=== PATIENT | female | born 1950 | race Caucasian/White ===

== ENCOUNTER 2017-01-17 11:17 | Inpatient (IN) | payer OTHER ==
[~2017-01-17] VITALS: Ht 165.1 cm; Wt 72.3 kg
[~2017-01-17 11:17] MED LIST: ACET-2208 PO; CARB200C4 PO; DOCU-299 PO; GLU500 PO; LISI10TA11 PO; METF500T PO; PARO20TA13 PO; SIMV20TA1 PO; [UNRECOGNIZED DRUG - CODE] PO
[2017-01-17 11:19] VITALS: BP 97/57
--- NOTE | 2017-01-17 11:29 | NUR ---
Patient ambulated to bed 7. RN evaluating patient at bedside.
--- NOTE | 2017-01-17 11:30 | NUR ---
Note undone in EDM - 01/17/17 at 1352 by [email or web address] 66/F RISA FROM [facility] FOR SUDDEN ONSET OF ALTERED LOC, ON ARRIVAL PATIENT IS AWAKE AND ALERT NON VERBAL. UNKNOWN BASELINE. HAS HX OF MR AND HTN AND DM. SKIN IS PINK/WARM/DRY; LUNGS CLEAR BL; HR EVEN AND REGULAR; PATIENT POSITIONED FOR COMFORT; HOB ELEVATED; BEDRAILS UP X2; BED DOWN. ER MD MADE AWARE OF PT STATUS.
--- NOTE | 2017-01-17 11:30 | NUR ---
66/F BIBA FROM [facility] FOR SUDDEN ONSET OF ALTERED LOC. HX OF MR AND HTN AND DM. PER EMS PT USUALLY VERBAL BUT TODAY AFTER GOT MEDS & SHOWERED PT NON VERBAL. PATIENT IS AWAKE AND ALERT NON VERBAL BUT FOLLOW COMMAND. BRYANT ARMS & LEGS MOD CONTRACTED. WEAR DIAPER. SKIN IS PINK/WARM/DRY; LUNGS CLEAR BL; HR EVEN AND REGULAR; PATIENT POSITIONED FOR COMFORT; HOB ELEVATED; BEDRAILS UP X2; BED DOWN. ER MD MADE AWARE OF PT STATUS.
--- NOTE | 2017-01-17 11:30 | NUR ---
Note undone in EDM - 01/17/17 at 1445 by [email or web address] 66/F RISA FROM [facility] FOR SUDDEN ONSET OF ALTERED LOC. HX OF MR AND HTN AND DM. PER EMS PT USUALLY BERBA BUT TODAY AFTER GOT MEDS & SHOWERED PT NON VERBAL. PATIENT IS AWAKE AND ALERT NON VERBAL BUT FOLLOW COMMAND. BRYANT ARMS & LEGS MOD CONTRACTED. WEAR DIAPER. SKIN IS PINK/WARM/DRY; LUNGS CLEAR BL; HR EVEN AND REGULAR; PATIENT POSITIONED FOR COMFORT; HOB ELEVATED; BEDRAILS UP X2; BED DOWN. ER MD MADE AWARE OF PT STATUS.
[2017-01-17] MEDS ORDERED: DIPH50CA69 PO (11:31)
[2017-01-17] MEDS ORDERED: IBUP-2213 PO (11:31)
[2017-01-17] MEDS ORDERED: HYDR25CA1 PO (11:31)
[2017-01-17] MEDS ORDERED: NIFE30TE5 PO (11:31)
[2017-01-17] MEDS ORDERED: LORA-476 PO (11:31)
[2017-01-17] MEDS ORDERED: QUET100T PO (11:31)
--- NOTE | 2017-01-17 11:51 | NUR ---
Dr. Porter evaluating patient at bedside.
[2017-01-17] MEDS ORDERED: NACL 0.9% 500 ML IV ONE (12:00)
[2017-01-17 12:42] LABS: BASOPHILS # (AUTO) 0.1 K/uL (0.00-0.22); BASOPHILS % (AUTO) 0.9 % (0.0-2.0); EOSINOPHILS # (AUTO) 0.1 K/uL (0-0.4); EOSINOPHILS % (AUTO) 0.8 % (0.0-4.0); HEMATOCRIT 35.7 % (36-48); HEMOGLOBIN 11.7 g/dL (12.0-16.0); LYMPHOCYTES # (AUTO) 0.5 K/uL (2.5-16.5); LYMPHOCYTES % (AUTO) 4.6 % (20.5-51.1); MEAN CORPUSCULAR HEMOGLOBIN 28 pg (27-31); MEAN CORPUSCULAR HGB CONC 33 g/dL (33-37); MEAN CORPUSCULAR VOLUME 84 fL (80-94); MONOCYTES % (AUTO) 8.4 % (1.7-9.3); NEUTROPHILS # (AUTO) 9.6 K/uL (1.8-7.7); NEUTROPHILS % (AUTO) 85.3 % (42.2-75.2); PLATELET COUNT (AUTO) 336 K/uL (140-450); RED BLOOD CELL COUNT(AUTO) 4.25 MIL/uL (4.20-5.40); RED CELL DISTRIBUTION WIDTH 12.9 % (11.6-13.7); WHITE BLOOD COUNT (AUTO) 11.3 K/uL (4.8-10.8)
[2017-01-17 13:01] LABS: PROTHROMBIN TIME 10.4 secs (10.8-13.4)
[2017-01-17 13:15] LABS: ANION GAP 13.4 (8-16); CREATININE 1.1 mg/dL (0.6-1.3); POTASSIUM 3.4 mmol/L (3.5-5.1)
[2017-01-17 13:15] LABS: APPEARANCE,URINE HAZY (CLEAR); BILIRUBIN,URINE NEGATIVE (NEGATIVE); BLOOD, URINE NEGATIVE (NEGATIVE); COLOR,URINE YELLOW (YELLOW); LEUKOCYTE ESTERASE ,URINE NEGATIVE (NEGATIVE); NITRITE, URINE NEGATIVE (NEGATIVE); PH,URINE 6.5 (5.0-9.0); UGLUCOSE NEGATIVE (NEGATIVE)
[2017-01-17 13:22] LABS: ALBUMIN 3.4 g/dL (3.4-5.0); TOTAL BILIRUBIN 0.2 mg/dL (0.0-1.0)
[2017-01-17] MEDS ORDERED: LORazepam 2 MG/ML VIAL IVP PRN (14:00)
[2017-01-17] MEDS ORDERED: NACL 0.9% 1,000 ML IV ONE (14:00)
[2017-01-17] MEDS ORDERED: MORPHINE SULFATE 2 MG/ML SYR IVP PRN (14:00)
[2017-01-17] MEDS ORDERED: ONDANSETRON 4 MG/2 ML VIAL IVP PRN (14:00)
--- NOTE | 2017-01-17 14:46 | NUR ---
Patient will be admitted to care of DR TIJERINA. Admited to MS. Will go to room 115. Belongings list completed. Report to CHRISTI LITTLE.
--- NOTE | 2017-01-17 14:46 | NUR ---
GAVE REPORTTO CHRISTI LITTLE.
--- NOTE | 2017-01-17 14:50 | NUR ---
RECEIVED REPORT FROM KWABENA MAURO RN. WILL GET ROOM READY. AWAIT PT'S ARRIVAL.
--- NOTE | 2017-01-17 15:05 | NUR ---
PT ARRIVED ON THE UNIT WITH ER NURSE. PT HAD AN ACCIDENT. WET HERSELF. CHANGED LINENS, CHANGED PT OUT OF HER CLOTHES, INTO YELLOW GOWN. ADMINISTERED YELLOW SOCKS, YELLOW BAND, YELLOW SIGN ON DOOR. PT REMOVED IV. NO IV ACCESS. PT HX OF STAPHYCOCCUS EPIDERMIDIS. ON CONTACT ISO. NEW ID BAND ADMINISTERED. SKIN INTACT. PT NON VERBAL. ALERT AND WAKE. V/S WITHIN NORMAL RANGE. WILL CONTINUE TO MONITOR PT.
[2017-01-17 15:30] VITALS: BP 120/75
--- NOTE | 2017-01-17 15:49 | NUR ---
CRITICAL LAB: LACTIC ACID 3.3 WILL NOTIFY
--- NOTE | 2017-01-17 17:33 | NUR ---
VIMAL, REGISTERED MIDWIFE CAME TO SEE PT. IF NEED TO CONTACT:[phone] CELL. KEEP HIM POSTED RE CONDITION.
--- NOTE | 2017-01-17 19:10 | NUR ---
ENDORSED PT TO THE SENIOR DIGITAL DESIGNER NURSE AT BEDSIDE FOR CONTINUITY OF CARE. PT IN STABLE CONDITION. DR TIJERINA IS SUPPOSED TO BE HERE TO ASSESS PT AND PUT IN ORDERS. ENDORSED TO RN THAT SHE DOES NOT HAVE AN IV ACCESS D/T PT PULLED IT OUT. WANTED TO SEE IF HE CAN ORDER PO INSTEAD OF IV. SHE WILL PULL IT OUT.
--- NOTE | 2017-01-17 19:25 | NUR ---
RECEIVED FROM AM RN IN BED IN SITTING UP POSITION WATCHING TV. AWAKE AND ALERT. MENTALLY CHALLENGED PT. ABLE TO ANSWER YES OR NO. CALL LIGHT WITH IN REACH. BED ALARM ON AND NEEDS WILL BE MET . DX. OF ENCEPHALOPATHY , HYPONATREMIA AND WITH ABNORMAL LACTIC ACID RESULT.
--- NOTE | 2017-01-17 20:56 | NUR ---
PT. STILL AWAKE AT THIS TIME. ENCOURAGED TO SLEEP. NO RESTLESSNESS. FLACC 0-. BED ALARM ON.
--- NOTE | 2017-01-18 | NUR ---
REFUSED TO GO TO SLEEP. KEEPS WATCHING PEOPLE PASSING BY THE HALLWAY. ENCOURAGED TO SLEEP.
[2017-01-18 00:13] VITALS: BP 128/81
--- NOTE | 2017-01-18 02:20 | NUR ---
SLEEPING AT THIS TIME. FLACC 0-. NO RESTLESSNESS.
--- NOTE | 2017-01-18 04:00 | NUR ---
AWAKE. AM PERSONAL HYGIENE RENDERED BY AGRICULTURAL SERVICES DIRECTOR ASSIGNED. ENCOURAGED TO GO BACK TO SLEEP.
--- NOTE | 2017-01-18 05:00 | NUR ---
SLEEPING. FLACC 0-BED ALARM ON.
--- NOTE | 2017-01-18 06:26 | NUR ---
PT. AWAKE AT THIS TIME. NO RESTLESSNESS NOTED.
[2017-01-18 06:59] LABS: BASOPHILS # (AUTO) 0.2 K/uL (0.00-0.22); BASOPHILS % (AUTO) 1.9 % (0.0-2.0); EOSINOPHILS # (AUTO) 0.2 K/uL (0-0.4); EOSINOPHILS % (AUTO) 2.1 % (0.0-4.0); HEMATOCRIT 31.8 % (36-48); HEMOGLOBIN 10.6 g/dL (12.0-16.0); LYMPHOCYTES # (AUTO) 1.9 K/uL (2.5-16.5); LYMPHOCYTES % (AUTO) 20.8 % (20.5-51.1); MEAN CORPUSCULAR HEMOGLOBIN 28 pg (27-31); MEAN CORPUSCULAR HGB CONC 34 g/dL (33-37); MEAN CORPUSCULAR VOLUME 83 fL (80-94); MONOCYTES % (AUTO) 11.4 % (1.7-9.3); NEUTROPHILS # (AUTO) 5.8 K/uL (1.8-7.7); NEUTROPHILS % (AUTO) 63.8 % (42.2-75.2); PLATELET COUNT (AUTO) 326 K/uL (140-450); RED BLOOD CELL COUNT(AUTO) 3.81 MIL/uL (4.20-5.40); RED CELL DISTRIBUTION WIDTH 12.5 % (11.6-13.7); WHITE BLOOD COUNT (AUTO) 9.1 K/uL (4.8-10.8)
--- NOTE | 2017-01-18 07:20 | NUR ---
RECEIVED FROM NIGHT NURSE. PT LYING LEFT LATERAL AROUSED TO SOUND. PT IS MENTALLY CHALLENGED, NON-VERBAL, BUT FOLLOW SIMPLE COMMANDS, ANSWERING BY NODDING AND SHAKING HER HEAD. NO IV ACCESS, ACCORDING TO NIGHT NURSE PT PULLED OUT HER IV. NO IVF ORDER AT THIS TIME. CALL LIGHT WITHIN REACH. BED ALARM ON FALL PRECAUTIONS ARE MET. WILL CONTINUE TO MONITOR.
[2017-01-18 08:00] VITALS: BP 142/91
[2017-01-18 08:01] LABS: ALBUMIN 3.1 g/dL (3.4-5.0); ANION GAP 13.7 (8-16); CARBON DIOXIDE 25.9 mmol/L (21-32); CREATININE 0.9 mg/dL (0.6-1.3); MAGNESIUM 1.6 mg/dL (1.8-2.4); PHOSPHORUS 3.8 mg/dL (2.5-4.9); POTASSIUM 4.6 mmol/L (3.5-5.1); TOTAL BILIRUBIN 0.3 mg/dL (0.0-1.0)
--- NOTE | 2017-01-18 09:30 | NUR ---
PT REMOVED HER ID BAND AND FALL RISK BAND. PT TRIED TO GET OUT OF BED. PUT PT BACK TO BED. PT HAD NO BM OR URINE IN THE PAD. PT RESTING IN THE BED QUIETLY.
[2017-01-18] MEDS: ENOXAPARIN 40 MG/0.4 ML SYR SUBQ SCH (09:48)
--- NOTE | 2017-01-18 10:00 | NUR ---
PT'S SISTER CAME TO VISIT, SITTING AT BEDSIDE. PT IS IN STABLE CONDITION AND FOLLOWS SIMPLE COMMANDS. NO ACUTE S/S OF DISTRESS NOTED.
--- NOTE | 2017-01-18 10:20 | NUR ---
SPOKE W/ DR. CORRAL WHO IS COVERING FOR DR. TIJERINA ABOUT PT' S HIGH BLOOD PRESSURE. DR. CORRAL ORDERED TO CONTINUE PT'S HOME MEDS OF LISINOPRIL AND PROCARDIA WITH THE SAME DOSAGE, FREQ AND ROUTE.
[2017-01-18] MEDS ORDERED: INSULIN LISPRO SLIDING SCALE 100 UNITS/ML VIAL SUBQ PRN (11:00)
[2017-01-18] MEDS: BLOOD GLUCOSE MONITORING 1 DEV DEV FS SCH ×3 (11:15→21:00)
--- NOTE | 2017-01-18 11:55 | NUR ---
CM NOTE INITIAL REVIEW FAXED TO [facility] / FAX# [phone], ATTN: PAT #[phone] [id number]
[2017-01-18] MEDS ORDERED: guaiFENesin DM 200/20 MG-10 ML 10 ML UDC PO PRN (14:05)
[2017-01-18] MEDS ORDERED: ACETAMINOPHEN 325 MG TAB PO PRN (14:05)
[2017-01-18] MEDS ORDERED: LORazepam 1 MG TAB PO PRN (14:05)
[2017-01-18] MEDS ORDERED: NACL 0.9% 1,000 ML IV SCH ×2 (14:10→17:55)
--- NOTE | 2017-01-18 14:16 | NUR ---
DR. CORRAL HAS SEEN THE PT. WAITING FOR TO PUT IN NEW ORDERS. PT URINATED, YANDY COLOR, NORMAL ODOR, MODERATE AMOUNT. CLEANED AND DRIED LIDA AREA, CHANGED CHUX. PT RESTING IN BED COMFORTABLY.
[2017-01-18] MEDS ORDERED: MAGNESIUM CHLORIDE 64 MG TABEC PO SCH (14:30)
--- NOTE | 2017-01-18 15:38 | NUR ---
PATIENT HAS BEEN SCREENED AND CATEGORIZED MODERATE NUTRITION RISK. PATIENT WILL BE SEEN WITHIN 3-5 DAYS OF ADMISSION. 01/20/17-01/22/[address]
[2017-01-18 16:00] VITALS: BP 152/103
--- NOTE | 2017-01-18 16:00 | NUR ---
PT WAS ASSISTED TO BATHROOM, PT HAD BM, STOOL WAS FORMED. PT FOLLOWS SIMPLE COMMANDS.
--- NOTE | 2017-01-18 17:00 | NUR ---
IV INSERTED ON THE RIGHT FA 22G, PT TOLERATED WELL. WILL BE ADMINISTERED 1L NS BOLUS PER MD ORDER.
[2017-01-18] MEDS: PARoxetine 20 MG TAB PO SCH (17:10)
[2017-01-18] MEDS: SIMVASTATIN 20 MG TAB PO SCH (17:11)
[2017-01-18] MEDS: hydrOXYzine PAMOATE 25 MG CAP PO SCH (18:26)
--- NOTE | 2017-01-18 19:35 | NUR ---
ENDORSED PT TO DIET CLERK NURSE FOR CONTINUITY OF CARE. PT REPORT GIVEN AT BEDSIDE. PT IS IN STABLE CONDITION.
--- NOTE | 2017-01-18 19:36 | NUR ---
RECEIVED REPORT FROM DAY NURSE LISET PT IN STABLE CONDITION. AAO, PT IS NON VERBAL BUT RESPONDS TO HER NAME. IV TO RA 22G, PATENT AND INTACT. SKIN IS INTACT, RESPIRATIONS ARE EVEN AND UNLABORED. PT IS ON RA. INITIAL ASSESSMENT COMPLETED. PLAN OF CARE DISCUSSED WITH PT, REINFORCEMENT NEEDED. ALL SAFETY PRECAUTIONS MET, CALL LIGHT WITHIN REACH, WILL CONTINUE TO MONITOR
[2017-01-18] MEDS ORDERED: CARBAMAZEPINE 200 MG PO SCH (21:00)
[2017-01-18] MEDS ORDERED: LISINOPRIL 10 MG TAB PO SCH (21:00)
[2017-01-18] MEDS: QUEtiapine FUMARATE 100 MG TAB PO SCH (22:10)
[2017-01-18] MEDS: LISINOPRIL 10 MG TAB PO SCH (22:10)
[2017-01-19] VITALS: BP 138/69
[2017-01-19] MEDS: BLOOD GLUCOSE MONITORING 1 DEV DEV FS SCH ×4 (06:38→20:30)
[2017-01-19 06:45] LABS: BASOPHILS # (AUTO) 0.2 K/uL (0.00-0.22); BASOPHILS % (AUTO) 1.7 % (0.0-2.0); EOSINOPHILS # (AUTO) 0.1 K/uL (0-0.4); EOSINOPHILS % (AUTO) 1.3 % (0.0-4.0); HEMOGLOBIN 9.7 g/dL (12.0-16.0); LYMPHOCYTES # (AUTO) 1.4 K/uL (2.5-16.5); LYMPHOCYTES % (AUTO) 15.4 % (20.5-51.1); MEAN CORPUSCULAR HEMOGLOBIN 28 pg (27-31); MEAN CORPUSCULAR HGB CONC 32 g/dL (33-37); MEAN CORPUSCULAR VOLUME 85 fL (80-94); MONOCYTES # (AUTO) 0.8 K/uL (0.8-1.0); MONOCYTES % (AUTO) 8.9 % (1.7-9.3); NEUTROPHILS # (AUTO) 6.6 K/uL (1.8-7.7); NEUTROPHILS % (AUTO) 72.7 % (42.2-75.2); PLATELET COUNT (AUTO) 312 K/uL (140-450); RED BLOOD CELL COUNT(AUTO) 3.53 MIL/uL (4.20-5.40); RED CELL DISTRIBUTION WIDTH 12.5 % (11.6-13.7); WHITE BLOOD COUNT (AUTO) 9.1 K/uL (4.8-10.8)
[2017-01-19 07:12] LABS: ALBUMIN 3.1 g/dL (3.4-5.0); CREATININE 0.6 mg/dL (0.6-1.3); TOTAL BILIRUBIN 0.4 mg/dL (0.0-1.0)
--- NOTE | 2017-01-19 07:26 | NUR ---
GAVE REPORT AT THE BEDSIDE TO DAY NURSE FOR CONTINUITY OF CARE PT IN STABLE CONDITION.
--- NOTE | 2017-01-19 07:29 | NUR ---
RECEIVED PT IN BED. AWAKE. ALERT ORIENTEDX1. NON VERBAL. PT OBEYS COMMAND. NO SOB NOTED. NO SIGNS AND SYMPTOMS OF ACUTE PAIN OR DISCOMFORT NOTED AT THIS TIME. PT ON BEDREST. SAFETY PRECAUTION IN PLACE. CALL LIGHT WITHIN REACH.
[2017-01-19 08:00] VITALS: BP 153/97
[2017-01-19] MEDS: LISINOPRIL 10 MG TAB PO SCH ×2 (08:52→20:33)
[2017-01-19] MEDS: DOCUSATE SODIUM 100 MG GELCAP PO SCH (08:52)
[2017-01-19] MEDS: QUEtiapine FUMARATE 100 MG TAB PO SCH ×2 (08:53→20:33)
[2017-01-19] MEDS: ENOXAPARIN 40 MG/0.4 ML SYR SUBQ SCH (08:56)
[2017-01-19] MEDS ORDERED: NIFEdipine 30 MG TABER PO SCH (09:00)
[2017-01-19] MEDS: NIFEdipine 30 MG TABER PO SCH (09:03)
[2017-01-19] MEDS: hydrOXYzine PAMOATE 25 MG CAP PO SCH ×3 (09:03→17:37)
--- NOTE | 2017-01-19 10:00 | NUR ---
PT UP IN CHAIR. SISTER AT BEDSIDE. PT AMBULATES WITH ASSIST. NO SOB NOTED. DENIES ANY PAIN OR DISCOMFORT AT THIS TIME.
--- NOTE | 2017-01-19 12:33 | NUR ---
FAXED CONCURRENT REVIEW TO [facility] [phone] PHONE [phone]
--- NOTE | 2017-01-19 14:52 | NUR ---
DR. CORRAL MADE AWARE OF MAGNESIUM LEVEL YESTERDAY 1.6 AND MAG TAB GIVEN PO. ASKED IF WOULD WANT TO REPEAT MG LEVEL FOR TODAY. PER DR. CORRAL NO, ITS OK.
[2017-01-19 16:00] VITALS: BP 145/68
--- NOTE | 2017-01-19 17:00 | NUR ---
PAGED DR. CORRAL REGARDING RESULT OF CT SCAN. AWAITING CALL BACK.
[2017-01-19] MEDS: SIMVASTATIN 20 MG TAB PO SCH (17:37)
[2017-01-19] MEDS: PARoxetine 20 MG TAB PO SCH (17:37)
--- NOTE | 2017-01-19 19:30 | NUR ---
RECEIVED REPORT FROM CHRISTI SINGLETON. INITIAL ASSESSMENT COMPLETED. PT IS ALERT AWAKE BUT UNABLE TO VERBALIZE NEEDS. PT IS MENTALLY CHALLENGE. IV ACCESS 22G ON SALINE LOCK. PATENT INTACT AT THIS TIME. NO SIGNS OF DISTRESS BED IN LOW POSITION. SAFETY MEASURE ENSURE, WILL CONTINUE TO MONITOR.
--- NOTE | 2017-01-19 19:41 | NUR ---
PT KEPT, CLEAN, DRY AND COMFORTABLE, NEEDS ATTENDED. ENDORSED TO NEXT SHIFT, PT ON STABLE CONDITION, FOR CONTINUITY OF CARE.
[2017-01-19] MEDS: POLYETHYLENE GLYCOL 17 GM/PKT PO SCH (20:33)
--- NOTE | 2017-01-19 22:45 | NUR ---
RECEIVED HANDOFF REPORT FROM RN. PATIENT NON VERBAL. FLACC 0. IV SITE PATENT AND INTACT. NO SIGNS OR SYMPTOMS OF ACUTE DISTRESS NOTED. CALL LIGHT WITHIN REACH. WILL CONTINUE TO MONITOR.
--- NOTE | 2017-01-19 22:50 | NUR ---
TRANSFER OF CARE TO CHRISTI COHEN. REPORT GIVEN. PT ON STABLE CONDITION.
[2017-01-20] VITALS: BP 161/99
--- NOTE | 2017-01-20 03:24 | NUR ---
PATIENT RESTING IN BED. FLACC 0. NO SIGNS OR SYMPTOMS OF ACUTE DISTRESS NOTED. CALL LIGHT WITHIN REACH. WILL CONTINUE TO MONITOR.
--- NOTE | 2017-01-20 06:15 | NUR ---
PATIENT RESTING IN BED. FLACC 0. NO SIGNS OR SYMPTOMS OF ACUTE DISTRESS NOTED. CALL LIGHT WITHIN REACH. WILL CONTINUE TO MONITOR.
--- NOTE | 2017-01-20 06:28 | NUR ---
PATIENT REFUSED BLOOD GLUCOSE CHECK AND MORNING LAB DRAW.
[2017-01-20] MEDS: BLOOD GLUCOSE MONITORING 1 DEV DEV FS SCH ×4 (07:30→20:04)
--- NOTE | 2017-01-20 07:36 | NUR ---
ENDORSED PLAN OF CARE TO AM RN. PATIENT IN STABLE CONDITION. SAFETY MEASURES ENSURED. NO SIGNS OR SYMPTOMS OF ACUTE DISTRESS NOTED. CALL LIGHT WITHIN REACH.
--- NOTE | 2017-01-20 07:37 | NUR ---
RECEIVED REPORT FROM NIGHT NURSE AT PT BEDSIDE. PT SLEEPING, EASILY AWAKENS. PATIENT APHASIC, AWAKE AND ALERT. FOLLOWS COMMANDS. PATIENT ON BEDREST, SIDE RAILS X2 UP, BED IN LOWEST POSITION, SEIZURE PRECAUTIONS IN PLACE. PATIENT IV SITE PATENT AND INTACT, CALL LIGHT WITHIN REACH. NO S/S OF RESPIRATORY DISTRESS ON ROOM AIR.
[2017-01-20 08:00] VITALS: BP 142/65
[2017-01-20] MEDS: DOCUSATE SODIUM 100 MG GELCAP PO SCH (09:46)
[2017-01-20] MEDS: LISINOPRIL 10 MG TAB PO SCH ×2 (09:46→20:29)
[2017-01-20] MEDS: QUEtiapine FUMARATE 100 MG TAB PO SCH ×2 (09:46→20:28)
[2017-01-20] MEDS: NIFEdipine 30 MG TABER PO SCH (09:47)
[2017-01-20] MEDS: POLYETHYLENE GLYCOL 17 GM/PKT PO SCH ×2 (09:47→20:27)
[2017-01-20] MEDS: hydrOXYzine PAMOATE 25 MG CAP PO SCH ×3 (09:47→17:57)
[2017-01-20] MEDS: ENOXAPARIN 40 MG/0.4 ML SYR SUBQ SCH (09:52)
--- NOTE | 2017-01-20 10:10 | NUR ---
PATIENT ASSISTED UP TO CHAIR WITH SISTER AT BEDSIDE. PATIENT TOLERATED PO MEDICATIONS. NO S/S OF ACUTE DISTRESS NOTED.
--- NOTE | 2017-01-20 11:00 | NUR ---
1025: WAS ALERTED OF PATIENT HAVING ACTIVE SEIZURE. PATIENT WAS SITTING UP IN CHAIR WITH SISTER AT BEDSIDE. ASSISTED PT TO FLOOR WHERE PATIENT WAS FOUND TO BE UNRESPONSIVE IN TONIC STATE. PATIENT VITALS TAKEN, ELEVATED BP 176/97, NO S/S OF RESPIRATORY DISTRESS. PATIENT ASSISTED TO BED, NO SUDDEN MOVEMENTS NOTED, UNRESPONSIVE. 1055: PATIENT AWAKE AND ALERT, SISTER AT BEDSIDE. PATIENT AT BASELINE MENTATION STATUS. SPOKE WITH DR. CORRAL, NEW ORDERS RECEIVED, ONE TIME SEIZURE MEDICATION ADMINISTERED. CT HEAD ORDERED.
[2017-01-20] MEDS ORDERED: LORazepam 2 MG/ML VIAL IM/IVP PRN (11:05)
[2017-01-20] MEDS ORDERED: carBAMazepine 200 MG TAB PO SCH (11:09)
--- NOTE | 2017-01-20 12:19 | NUR ---
PATIENT RETURNED FROM CT HEAD, NO S/S OF ACUTE DISTRESS NOTED.
[2017-01-20] MEDS ORDERED: NACL 0.9% 1,000 ML IV SCH (13:45)
--- NOTE | 2017-01-20 15:00 | NUR ---
WITNESSED PATIENT SEIZURE IN BED WITH DAUGHTER AND VIMAL FROM [facility]. IVP ATIVAN ADMINISTERED. DR. CORRAL NOTIFIED OF SEIZURE LASTING TWO MINUTES. PATIENT SHOWS NO ACUTE INJURY FROM SEIZURE. NEW ORDERS RECEIVED FOR CXR DUE TO CRACKLES HEARD BILATERALLY. NEW ORDERS FOR CONSULTATION WITH NEURO.
--- NOTE | 2017-01-20 15:53 | NUR ---
SPOKE WITH XUAN FROM [facility]. SHE SAID FOR [facility], SEND REVIEWS TO [facility]. FAXED CONCURRENT REVIEW TO [facility] [phone] PHONE XUAN [phone]
[2017-01-20 16:00] VITALS: BP 131/72
--- NOTE | 2017-01-20 16:20 | NUR ---
PATIENT POSITIONED FOR COMFORT. TOLERATED PO DINNER. OFFLOADED PRESSURE AREAS. NO S/S OF ACUTE DISTRESS NOTED.
[2017-01-20] MEDS: SIMVASTATIN 20 MG TAB PO SCH (17:58)
[2017-01-20] MEDS: PARoxetine 20 MG TAB PO SCH (17:58)
--- NOTE | 2017-01-20 19:31 | NUR ---
ENDORSED PLAN OF CARE TO RN DIONE AT PT BEDSIDE. PATIENT AND FAMILY AT BEDSIDE MADE AWARE OF PLAN OF CARE. ALL NEEDS MET DURING SHIFT.
--- NOTE | 2017-01-20 19:40 | NUR ---
RECEIVED REPORT FROM DAY RN TUNG, PATIENT RESTING IN BED, AWAKE ALERT APHASIC, PATIENT IS MENTALLY CHALLENGED. NO S/S OF DISTRESS NOTED, RESPIRATION EVEN AND UNLABORED. TURNED PATIENT TO HER COMFORTABLE POSITION. CALL LIGHT WITHIN REACH, SAFETY MEASURE ENSURED WILL CONTINUE TO MONITOR.
[2017-01-20 20:00] VITALS: BP 135/82
[2017-01-20] MEDS: levETIRAcetam 500 MG in NACL 0.9% 100 ML IV SCH (20:27)
[2017-01-20] MEDS: carBAMazepine 200 MG TAB PO SCH (20:28)
--- NOTE | 2017-01-20 20:42 | NUR ---
PM MEDICATION GIVEN, PATIENT TOLERATED WELL. NO S/S OF DISTRESS NOTED, RESPIRATION EVEN AND UNLABORED, CALL LIGHT WITHIN REACH SAFETY MEASURE ENSURED, WILL CONTINUE TO MONITOR.
[2017-01-20] MEDS ORDERED: levETIRAcetam 500 MG in NACL 0.9% 100 ML IV ONE (21:00)
--- NOTE | 2017-01-20 22:35 | NUR ---
PATIENT ASLEEP IN BED, NO S/S OF DISTRESS NOTED, RESPIRATION EVEN AND UNLABORED, REPOSITIONED PATIENT TO HER COMFORTABLE POSITION, CALL LIGHT WITHIN REACH, SAFETY MEASURE ENSURED, WILL CONTINUE TO MONITOR.
[2017-01-20 23:51] VITALS: BP 115/61
--- NOTE | 2017-01-21 00:23 | NUR ---
NO CHANGE IN CONDITION, PATIENT WAS SLEEPING, BUT EASY TO AROUSE. VITAL SIGNS STABLE. NO S/S OF DISTRESS NOTED, RESPIRATION EVEN AND UNLABORED, REPOSITIONED PATIENT TO HER COMFORTABLE POSITION. CALL LIGHT WITHIN REACH, SAFETY MEASURE ENSURED,
--- NOTE | 2017-01-21 02:38 | NUR ---
NO CHANGE IN CONDITION, PATIENT WAS SLEEPING, EASY TO AROUSE, RESPIRATION EVEN AND UNLABORED, REPOSITIONED PATIENT TO HER COMFORTABLE POSITION. CALL LIGHT WITHIN REACH, SAFETY MEASURE ENSURED, WILL CONTINUE TO MONITOR.
[2017-01-21 04:00] VITALS: BP 111/75
--- NOTE | 2017-01-21 04:09 | NUR ---
PATIENT WAS SLEEPING, EASY TO AROUSE, VITAL SIGNS STABLE, RESPIRATION EVEN AND UNLABORED, CALL LIGHT WITHIN REACH, SAFETY MEASURE ENSURED, WILL CONTINUE TO MONITOR.
[2017-01-21] MEDS: BLOOD GLUCOSE MONITORING 1 DEV DEV FS SCH ×2 (06:47→11:30)
--- NOTE | 2017-01-21 06:53 | NUR ---
PATIENT IS SLEEPING, NO CHANGE IN CONDITION, RESPIRATION EVEN AND UNLABORED, CALL LIGHT WITHIN REACH, SAFETY MEASURE ENSURED, WILL CONTINUE TO MONITOR.
--- NOTE | 2017-01-21 07:11 | NUR ---
ENDORSED PLAN OF CARE TO DAY RN KISHORE, PATIENT RESTING IN BED, IN STABLE CONDITION. RESPIRATION EVEN AND UNLABORED.
--- NOTE | 2017-01-21 07:12 | NUR ---
RECEIVED REPORT FROM BAR HOST NURSE. PATIENT SLEEPING, AROUSABLE BY VOICE. NO DISTRESS NOTED. NO PAIN ON FLACC=0. AA, NON-VERBAL, SKIN COLOR APPROPRIATE TO ETHNICITY, WARM TO TOUCH. LUNGS CTA ON ALL LOBES, IV SITE INTACT, PATENT, ON SL. ABDOMEN SOFT, NON-DISTENDED. PATIENT HAS COMBATIVE BEHAVIOR WHERE IS NOT COOPERATIVE AND CONTINUOUSLY TRIES TO HIT AND BITE NURSES WHEN TRYING TO FEED AND TAKE VITAL SIGNS. REVIEWED PLAN OF CARE WITH PATIENT. SAFETY MEASURES IN PLACE, CALL LIGHT WITHIN REACH, SEIZURE PRECAUTIONS IN PLACE. WILL CONTINUE TO MONITOR.
[2017-01-21 08:00] VITALS: BP 126/77
--- NOTE | 2017-01-21 09:40 | NUR ---
PATIENT LYING IN BED WITH DAUGHTER AT BEDSIDE. NO DISTRESS NOTED. RESPIRATIONS EVEN, UNLABORED ON ROOM AIR. CONTINUES TO BE CONFUSED AND TRIES TO REMOVE BULLOCK CATHETER. MITTENS PLACED ON BOTH HANDS, HOWEVER, PATIENT KEEPS TAKING MITTENS OFF. MEDICATIONS DUE GIVEN. SAFETY MEASURES IN PLACE, CALL LIGHT WITHIN REACH. WILL CONTINUE TO MONITOR. Addendum: 01/21/17 at 1444 by Jb Rosario RN DISREGARD NOTE ABOVE. WRONG PATIENT
--- NOTE | 2017-01-21 09:50 | NUR ---
PATIENT LYING IN BED WITH FAMILY MEMBERS AT BEDSIDE. NO DISTRESS NOTED. FLACC 0, NO SEIZURES NOTED. ASSISTED PROCESS SAFETY MANAGEMENT ENGINEER WITH PATIENT CLEANUP. MEDICATIONS DUE GIVEN. CONDITION UNCHANGED. CONTINUES TO BE COMBATIVE TOWARD NURSES, CALM AROUND FAMILY MEMBERS. SAFETY MEASURES IN PLACE, CALL LIGHT WITHIN REACH, SEIZURE PRECAUTIONS IN PLACE. WILL CONTINUE TO MONITOR.
[2017-01-21] MEDS: hydrOXYzine PAMOATE 25 MG CAP PO SCH ×2 (10:03→12:51)
[2017-01-21] MEDS: carBAMazepine 200 MG TAB PO SCH (10:04)
[2017-01-21] MEDS: QUEtiapine FUMARATE 100 MG TAB PO SCH (10:04)
[2017-01-21] MEDS: NIFEdipine 30 MG TABER PO SCH (10:04)
[2017-01-21] MEDS: DOCUSATE SODIUM 100 MG GELCAP PO SCH (10:04)
[2017-01-21] MEDS: LISINOPRIL 10 MG TAB PO SCH (10:04)
[2017-01-21] MEDS: ENOXAPARIN 40 MG/0.4 ML SYR SUBQ SCH (10:05)
[2017-01-21] MEDS: POLYETHYLENE GLYCOL 17 GM/PKT PO SCH (10:06)
[2017-01-21] MEDS: levETIRAcetam 500 MG in NACL 0.9% 100 ML IV SCH (10:06)
--- NOTE | 2017-01-21 10:15 | NUR ---
IV SITE IS INFILRATED. IV LEVETIRACETAM NOT COMPETELY FINISHED. ATTEMPTED TO REMOVE IV AND START A NEW IV LINE, HOWEVER, PATIENT IS COMBATIVE AND REFUSES. NURSE UNABLE TO START A NEW IV LINE AT THIS TIME. WILL CHECK BACK LATER TO SEE IF PATIENT IS CALMER. WILL CONTINUE TO MONITOR.
[2017-01-21 12:00] VITALS: BP 116/79
--- NOTE | 2017-01-21 12:15 | NUR ---
PATIENT LYING IN BED WITH LUNCH TRAY IN FRONT AND DAUGHTER AT BEDSIDE FEEDING PATIENT. NO DISTRESS NOTED. FLACC 0. CONTINUE TO BE CONFUSED. CONDITION UNCHANGED. SAFETY MEASURES IN PLACE, CALL LIGHT WITHIN REACH. WILL CONTINUE TO MONITOR. Addendum: 01/21/17 at 1444 by Jb Rosario RN DISREGARD NOTE ABOVE. WRONG PATIENT
--- NOTE | 2017-01-21 12:30 | NUR ---
PATIENT SITTING IN BED WITH FAMILY MEMBER AT BEDSIDE FEEDING PATIENT. NO DISTRESS NOTED. FLACC 0. NO SEIZURES NOTED. CONDITION UNCHANGED. SAFETY MEASURES IN PLACE. WILL CONTINUE TO MONITOR.
[2017-01-21] MEDS ORDERED: KEP500 PO (14:18)
[2017-01-21] MEDS ORDERED: GLIP5TAB13 PO (14:20)
--- NOTE | 2017-01-21 14:30 | NUR ---
DR. PALOMO CALLED VIA PHONE. INFORMED DR. PALOMO THAT PATIENT HAD NO SEIZURES TODAY. OK TO DISCHARGE PATIENT BACK TO FACILITY PER DR. PALOMO VIA TORB. SAFETY MEASURES IN PLACE, CALL LIGHT WITHIN REACH. WILL CONTINUE TO MONITOR.
--- NOTE | 2017-01-21 15:28 | NUR ---
CALLED VIMAL JOHNSON, PATIENT'S CAREGIVER AT [facility] TO NOTIFY HIM THAT PATIENT IS CLEAR FOR DISCHARGE BACK TO HOME TODAY. VIMAL ABLE TO CENTERLESS GRINDING MACHINE ADJUSTER PATIENT FROM HOSPITAL AT 4 PM TODAY. SAFETY MEASURES IN PLACE, CALL LIGHT WITHIN REACH. WILL CONTINUE TO MONITOR.
--- NOTE | 2017-01-21 16:15 | NUR ---
PATIENT LYING IN BED COMFORTABLY. NO DISTRESS NOTED. FLACC =0. CONDITION UNCHANGED. NO SEIZURES NOTED. PROVIDED DISCHARGE INSTRUCTIONS TO PATIENT/FAMILY IN [place] FAMILY MEMBERS ABLE TO SPEAK [place]. FAMILY MEMBERS DECLINED BLUE TELEPHONE FOR TRANSLATION. DISCHARGE INSTRUCTIONS REGARDING FOLLOW-UP VISIT WITH NEUROLOGIST AND PCP, NEW/CHANGED MEDICATIONS, SEIZURE PRECAUTIONS AND DIET. ANSWERED ALL OF PATIENT/FAMILY MEMBERS QUESTIONS. PATIENT ALL READY TO GO HOME VIA PRIVATE VEHICLE. AWAITING VIMAL, CAREGIVER, TO ARRIVE TO TAKE PATIENT HOME VIA PRIVATE VEHICLE. IN STABLE CONDITION.
--- NOTE | 2017-01-21 16:30 | NUR ---
VIMAL, PATIENT'S CAREGIVER AT HOME FACILITY HERE TO TAKE PATIENT HOME. PATIENT ALREADY DRESSED UP AND READY TO GO. ID BANDS REMOVED. IV SITE REMOVED WITH MINIMAL BLOOD AND LUMEN COMPLETELY INTACT. NO DISTRESS NOTED. PATIENT DISCHARGED TO HOME FACILITY VIA PRIVATE VEHICLE. WHEELED PATIENT DOWN TO LOBBY VIA WHEELCHAIR WITH FAMILY AT SIDE. PATIENT ABLE TO AMBULATE FROM WHEELCHAIR TO THE CAR WITH ASSISTANCE. PATIENT DISCHARGED HOME VIA PRIVATE VEHICLE IN STABLE CONDITION.
== END 2017-01-21 16:30 | disposition home or self-care (01) | DRG 422 ==
LOC: MED 11:17 → MTU 14:03
PROVIDERS: ADMIT Hospitalist; ATTEND Hospitalist
DX: E86.0 Dehydration (principal); G93.40 Encephalopathy, unspecified; E87.2 Acidosis; K80.20 Calculus of gallbladder without cholecystitis without obstruction; I10 Essential (primary) hypertension; F79 Unspecified intellectual disabilities; E87.1 Hypo-osmolality and hyponatremia; E11.9 Type 2 diabetes mellitus without complications; G40.909 Epilepsy, unspecified, not intractable, without status epilepticus; T38.3X5A Adverse effect of insulin and oral hypoglycemic [antidiabetic] drugs, initial encounter; Z79.899 Other long term (current) drug therapy; Y92.89 Other specified places as the place of occurrence of the external cause; Z79.84 Long term (current) use of oral hypoglycemic drugs
CPT/HCPCS: 36415; 36600; 70450; 71010; 76705; 80053; 81003; 82803; 82948; 83605; 83735; 83880; 84100; 84484; 85025; 85610; 85730; 87040; 87081; 93005; 96360; 99285; C1758; J1650; J1815; J1953; J2060; J7030; Q0092; Q0177

== ENCOUNTER 2017-10-16 07:47 | Emergency (ER) | payer OTHER ==
[~2017-10-16] VITALS: Ht 157.5 cm; Wt 59.0 kg
[~2017-10-16 07:47] MED LIST changes: +GLIP5TAB13 PO; -GLU500 PO; +HYDR25CA1 PO; +KEP500 PO; +LORA-476 PO; -METF500T PO; +NIFE30TE5 PO; +QUET100T PO
--- NOTE | 2017-10-16 07:49 | NUR ---
PT BIBA BLS TO BED 7
[2017-10-16 07:51] VITALS: BP 176/98
--- NOTE | 2017-10-16 07:58 | NUR ---
DR ESCOBEDO EVALUATING AT BEDSIDE
[2017-10-16] MEDS ORDERED: cefTRIAXone 1,000 MG in LIDOCAINE 1% ***ER ONLY *** 2.1 ML IM ONE (08:00)
[2017-10-16] MEDS ORDERED: cefTRIAXone 1,000 MG VIAL ONE (08:09)
[2017-10-16] MEDS ORDERED: LIDOCAINE MPF 1% - 5 mL VIAL 5 ML ONE (08:10)
--- NOTE | 2017-10-16 08:11 | NUR ---
PT TAKEN TO CT IN [place]
--- NOTE | 2017-10-16 08:16 | NUR ---
pt taken to ct scan
--- NOTE | 2017-10-16 08:22 | NUR ---
BROUGHT IN FROM [facility] (BOARDING CARE) IN [facility] PT FELL FROM BED-NO LOC LACERATION TO LEFT SIDE OF FOREHEAD ===BEHAVING APPROPRIATELY NO FACIAL ASYMMETRY, MOVING ALL EXTREMITIES HX---MENTALLY DELAYED, HTN, DM RX---LISINOPRIL, SIMVASTATIN, TYLENOL, IBUPROFEN, HYDROXYZINE, PROPRANOLOL, IRON, ZIPRASIDONE, QUETIAPINE, BANOPHEN, CARBAMAZEPINE, SENTRY, METFORMIN, GLIPIZIDE, ATIVAN, NIFEDIPINE, COLACE, PARROXETINE, CARB/LEVO, LEVETIRACETAM
--- NOTE | 2017-10-16 08:30 | NUR ---
PT RETURNED FROM CT
[2017-10-16] MEDS ORDERED: LIDOCAINE MPF 1% ONE (09:21)
[2017-10-16] MEDS ORDERED: BACITRACIN OINT 500 UNITS/GM PKT TP ONE (09:47)
[2017-10-16 10:04] VITALS: BP 144/73
--- NOTE | 2017-10-16 10:05 | NUR ---
Patient discharged with v/s stable. Written and verbal after care instructions given and explained. Patient alert, oriented and verbalized understanding of instructions. Ambulatory with by caregiver. All questions addressed prior to discharge. ID band removed. Patient advised to follow up with PMD. Rx of IBUPROFEN, KEFLEX given. Patient educated on indication of medication including possible reaction and side effects. Opportunity to ask questions provided and answered.
== END 2017-10-16 10:05 | disposition home or self-care (01) ==
LOC: MED 07:47
DX: S01.81XA Laceration without foreign body of other part of head, initial encounter (principal); E11.9 Type 2 diabetes mellitus without complications; I10 Essential (primary) hypertension; Z88.8 Allergy status to other drugs, medicaments and biological substances; Z79.899 Other long term (current) drug therapy; Z79.1 Long term (current) use of non-steroidal anti-inflammatories (NSAID); W06.XXXA Fall from bed, initial encounter; Y93.89 Activity, other specified; Y92.89 Other specified places as the place of occurrence of the external cause; Y99.8 Other external cause status
CPT/HCPCS: 12014; 70450; 72125; 90471; 90715; 96372; 99284; J0696; J2001

== ENCOUNTER 2018-04-26 17:23 | Inpatient (IN) | payer OTHER ==
[~2018-04-26] VITALS: Ht 149.9 cm; Wt 60.3 kg
[2018-04-26 17:57] VITALS: BP 128/52
--- NOTE | 2018-04-26 19:30 | NUR ---
PT TO ER BED 10
--- NOTE | 2018-04-26 20:11 | NUR ---
PT TO ED BIB CAREGIVER FOR FEVER. AFEBRILE AT THIS TIME. DENIES N/V/D. PT HX OF DEVELOPMENTAL DELAY --AT BASELINE AT THIS TIME. PT PLACED INTO BED PENDING MD MATTHEWS.
[2018-04-26 20:23] LABS: HEMATOCRIT 26.8 % (36-48); HEMOGLOBIN 8.6 g/dL (12.0-16.0); MEAN CORPUSCULAR HEMOGLOBIN 28 pg (27-31); MEAN CORPUSCULAR HGB CONC 32 g/dL (33-37); MEAN CORPUSCULAR VOLUME 87.1 fL (80-94); PLATELET COUNT (AUTO) 353 K/uL (140-450); RED BLOOD CELL COUNT(AUTO) 3.07 MIL/uL (4.20-5.40); RED CELL DISTRIBUTION WIDTH 14.1 % (11.6-13.7)
[2018-04-26 20:31] LABS: ANION GAP 13.6 (8-16); CARBON DIOXIDE 23.6 mmol/L (21-32); CREATININE 0.9 mg/dL (0.6-1.3); POTASSIUM 3.2 mmol/L (3.5-5.1)
[2018-04-26] MEDS ORDERED: NACL 0.9% 1,000 ML IV ONE (20:35)
[2018-04-26 20:38] LABS: ALBUMIN 2.1 g/dL (3.4-5.0); TOTAL BILIRUBIN 0.8 mg/dL (0.0-1.0)
[2018-04-26 21:03] LABS: BILIRUBIN,URINE 1+ (NEGATIVE); BLOOD, URINE 1+ (NEGATIVE); LEUKOCYTE ESTERASE ,URINE TRACE (NEGATIVE); NITRITE, URINE NEGATIVE (NEGATIVE); UGLUCOSE TRACE (NEGATIVE)
[2018-04-26 21:04] LABS: APPEARANCE,URINE HAZY (CLEAR); COLOR,URINE ORANGE (YELLOW)
[2018-04-26 21:06] LABS: RBC,URINE 3-10 (FEW) /HPF (0-5)
[2018-04-26 21:11] LABS: WHITE BLOOD COUNT (AUTO) 40.8 K/uL (4.8-10.8)
[2018-04-26] MEDS ORDERED: PIPERACILLIN/TAZOBACTAM 3.375 GM in DEXTROSE 5% 50 ML IV ONE (21:15)
[2018-04-26] MEDS ORDERED: NACL 0.9% 2,000 ML IV ONE (21:15)
[2018-04-26] MEDS ORDERED: VANCOMYCIN 1,000 MG in DEXTROSE 5% 250 ML IV ONE (21:15)
--- NOTE | 2018-04-26 21:20 | NUR ---
PER ADMITTING PT TO BE ADMITTED TO [facility].
[2018-04-26] MEDS ORDERED: MORPHINE SULFATE 2 MG/ML SYR IVP PRN (21:25)
[2018-04-26] MEDS ORDERED: VANCOMYCIN PER PHARMACY MC PRN (21:25)
[2018-04-26] MEDS ORDERED: DEXTROSE 50% 50 ML SYR IVP PRN (21:25)
[2018-04-26] MEDS ORDERED: ALBUTEROL 0.083% 2.5 MG/3 ML NEBU INH PRN (21:25)
[2018-04-26] MEDS ORDERED: PIPERACILLIN/TAZOBACTAM 3.375 GM VIAL IV ONE (21:28)
[2018-04-26] MEDS ORDERED: VANCOMYCIN 1,000 MG VIAL ONE (21:28)
--- NOTE | 2018-04-26 21:30 | NUR ---
# 14 FR Urinary catheter inserted utilizing sterile technique. Immediate return of 100 ml DARK YELLOW urine noted. Urine sample collected and sent to lab. Pt tolerated procedure WELL. CATH REMOVED AFTER URINE COLLECTION.
[2018-04-26 21:38] LABS: LYMPHOCYTES % (MANUAL) 2 % (20-46); MONOCYTES % (MANUAL) 6 % (5-12)
[2018-04-26] MEDS ORDERED: KCL 20 MEQ/WATER INJ PREMIX 200 ML IV ONE (21:40)
--- NOTE | 2018-04-26 22:15 | NUR ---
Patient noted to have existing wounds upon arrival to ER. Photos taken of wound and placed in chart. Wound covered with dressing. Physician informed.
--- NOTE | 2018-04-26 22:25 | NUR ---
RECEIVED FROM ER NURSE VIA KOURTNEY DIAS AWAKE, ALERT, W/ DEVT DELAY, NON VERBAL. PT ON TELE. PT WITH IVF ON THE R AC, G 18. BROUGHT IN BY CAREGIVERS FROM [facility]. ASSESSMENT OF SKIN DONE.ORIENTED TO UNIT. DISCUSSED POC W/ CAREGIVERS. PLACED BED AT LOWEST POSITION. PLACED CALL LIGHT W/IN EASY REACH. WILL CONTINUE TO MONITOR
--- NOTE | 2018-04-26 22:32 | NUR ---
Patient will be admitted to care of DR BENITES. Admited to TELE. Will go to room 105-A. Belongings list completed. Report to CHRISTI MATAMOROS.
--- NOTE | 2018-04-26 23:56 | NUR ---
DRESSING CHANGE ON SACRAL WOUND DONE
[2018-04-27] VITALS: BP 147/70
--- NOTE | 2018-04-27 00:30 | NUR ---
PT SLEEPING ON LEFT SIDE, TURNED PATIENT Q2. SLEEPING COMFORTABLE. NO SIGNS OF RESPIRATORY DISTRESS. NO S/ SX'S OF PAIN NOTED. WILL CONTINUE TO MONITOR
[2018-04-27] MEDS: NACL 0.9% 1,000 ML IV SCH ×3 (02:00→22:25)
[2018-04-27] MEDS ORDERED: POTASSIUM CHLORIDE 10 MEQ TABER PO ONE ×2 (03:05→05:18)
--- NOTE | 2018-04-27 03:06 | NUR ---
INFORMED RN PSYCH DR BLACKWELL ON K RESULT 3.2. HE SAID TO GIVE THE K PO. KDUR 20 MEQ PO ONCE TONIGHT. PT WAS NOT ABLE TO GET THE IVF IN THE ER EARLIER.WILL CARRY OUT ORDERS
[2018-04-27 04:00] VITALS: BP 140/68
--- NOTE | 2018-04-27 05:15 | NUR ---
ADMINISTERED K DUR NOW AFTER VERIFICATION OF PHARMACY
--- NOTE | 2018-04-27 05:16 | NUR ---
K DUR TABLET OVERIDE NO VERIFICATION DONE BY PHARMACY.
[2018-04-27 06:00] VITALS: BP 120/68
[2018-04-27] MEDS: ACETAMINOPHEN 325 MG TAB PO PRN ×2 (06:16→20:14)
--- NOTE | 2018-04-27 06:16 | NUR ---
T =101. F.GAVE TYLENOL PRN
[2018-04-27] MEDS: BLOOD GLUCOSE MONITORING 1 DEV DEV FS SCH ×4 (06:18→21:47)
[2018-04-27] MEDS: INSULIN LISPRO SLIDING SCALE 100 UNITS/ML VIAL SUBQ PRN ×2 (06:20→20:22)
--- NOTE | 2018-04-27 07:45 | NUR ---
ENDORSED TO NEXT SHIFT FOR CONTINUITY OF CARE
--- NOTE | 2018-04-27 07:45 | NUR ---
RECEIVED PATIENT REPORT AT BEDSIDE. PATIENT ASLEEP BUT AROUSABLE. NO S/S OF DISTRESS NOTED
--- NOTE | 2018-04-27 08:37 | NUR ---
PATIENT HAS BEEN SCREENED AND CATEGORIZED HIGH NUTRITION RISK. PATIENT WILL BE SEEN WITHIN 1-2 DAYS OF ADMISSION. 04/27/18-04/28/[address]
[2018-04-27] MEDS ORDERED: CEFEPIME 1,000 MG in DEXTROSE 5% 50 ML IV SCH (09:00)
[2018-04-27] MEDS ORDERED: CEFEPIME 1,000 MG in DEXTROSE 5% 50 ML IV ONE (09:00)
[2018-04-27 09:17] LABS: HEMATOCRIT 22.2 % (36-48); HEMOGLOBIN 7.2 g/dL (12.0-16.0); MEAN CORPUSCULAR HEMOGLOBIN 28 pg (27-31); MEAN CORPUSCULAR HGB CONC 33 g/dL (33-37); MEAN CORPUSCULAR VOLUME 86.8 fL (80-94); PLATELET COUNT (AUTO) 317 K/uL (140-450); RED BLOOD CELL COUNT(AUTO) 2.56 MIL/uL (4.20-5.40); RED CELL DISTRIBUTION WIDTH 13.7 % (11.6-13.7)
[2018-04-27] MEDS: CEFEPIME 1,000 MG in DEXTROSE 5% 50 ML IV SCH (10:00)
--- NOTE | 2018-04-27 10:30 | NUR ---
PATIENT EVALUATED WITH WOUND CARE NURSE
[2018-04-27 10:36] LABS: BASOPHILS % (MANUAL) 0 % (0-2); EOSINOPHILS % (MANUAL) 1 % (0-4); LYMPHOCYTES % (MANUAL) 2 % (20-46); MONOCYTES % (MANUAL) 5 % (5-12)
[2018-04-27 10:52] LABS: ALBUMIN 1.7 g/dL (3.4-5.0); ANION GAP 11.2 (8-16); CARBON DIOXIDE 23.9 mmol/L (21-32); CREATININE 0.9 mg/dL (0.6-1.3); MAGNESIUM 1.1 mg/dL (1.8-2.4); POTASSIUM 3.1 mmol/L (3.5-5.1); TOTAL BILIRUBIN 0.5 mg/dL (0.0-1.0)
[2018-04-27 12:00] VITALS: BP 110/59
--- NOTE | 2018-04-27 14:19 | NUR ---
04/27/18 RD INITIAL ASSESSMENT COMPLETED PLEASE REFER TO NUTRITION ASSESSMENT UNDER CARE ACTIVITY FOR ESTIMATED NUTRITIONAL NEEDS. 1. RECOMMEND MECHANICALLY SOFT CCHO 60 GM DIET TOLERATED 2. RECOMMEND VITAMIN C 100 MG/DAY 3. RD TO FOLLOW-UP 3-5 DAYS, MODERATE RISK BRIAN MALAGON, RD
[2018-04-27] MEDS: ENOXAPARIN 40 MG/0.4 ML SYR SUBQ SCH (15:14)
--- NOTE | 2018-04-27 16:02 | NUR ---
WOUND CARE EVALUATION NOTE: REASON FOR EVALUATION: COCCYX WOUND SKIN ASSESSMENT DONE WITH PRIMARY RN ON THIS 67 Y/O FEMALE PT ADMITTED FROM [facility] TO [facility] WITH INITIAL DX OF FEVER. PAST MEDICAL HX INCLUDES CEREBRAL PALSY PT. ADMITTED WITH PRESSURE INJURIES. ALL ABOVE INFORMATION OBTAINED FROM ADMISSION H&P. EMERGENCY PREPAREDNESS MANAGER DEPARTMENT INFORM OF PT. ADMITTED WITH PRESSURE INJURY. PT IS AWAKE. SKIN IS WARM AND DRY, BLE NO HAIR GROWTH, BILATERAL DORSAL PEDAL PULSES PRESENT AND NORMAL. CAPILLARY REFILLED < 2 SEC. X 10 TOES. INCONTINENT OF BM X1 DURING ASSESSMENT. PLAN OF CARE DISCUSSED WITH PRIMARY RN. INTEGUMENTARY: -ABRASION TO RIGHT LATERAL ABOVE ANKLE 2X1 CM AREA IS DRY -RIGHT 2ND AND 5TH DIGIT TOES SMALL BROWN SCABS 0.5X0.5 CM -BLANCHABLE REDNESS TO HEELS -PRESSURE INJURY UN-STAGEABLE TO SACRAL COCCYX, 3X3CM WOUND BED 100% BROWN SOFT SCAB NO ODOR, WITH LIDA-WOUND DENUDED AND SURROUNDING REDNESS WITH DTI OBSERVED, ENTIRE MEASUREMENT 7X4CM FURTHER DAMAGE INDICATED -LEFT HIP PRESSURE INJURY STAGE 2 FROM OPEN BLISTER 3X2X0.1 CM WOUND BED IS RED AND MOIST NO ODOR RECOMMENDATIONS: -KEEP SKIN DRY AND CLEAN AT ALL TIMES, PLEASE CHECK Q2H AND PRN FOR INCONTINENCY OF BOWEL AND BLADDER. -CLEANSE SACROCOCCYX WITH NS. PAT DRY, APPLY THERAHONEY GEL AND COVER WITH FOAM DRESSING SECURE WITH TAPE, QD AND PRN IF SOILING. -APPLY VERSATEL DRESSING TO LEFT HIP Q5 DAYS AND PRN IF SOILING, MONITOR PLACEMENT OF DRESSING Q SHIFT -APPLY HEEL PROTECTORS TO RIGHT/LEFT HEELS AT ALL TIMES -OFFLOAD BILATERAL HEELS BY PLACING PILLOWS UNDER CALVES UNLESS OTHERWISE CONTRAINDICATED -PRESSURE REDISTRIBUTION SURFACE THERAPY -TURN AND REPOSITION Q2H, OFFLOAD SACRALCOCCYX BY TURNING RIGHT AND LEFT -CONTINUE TO FOLLOW RD RECOMMENDATIONS ALL ABOVE RECOMMENDATIONS DISCUSSED WITH PRIMARY RN WILL FOLLOW UP PT Q7-10 DAYS. PLEASE CONTACT WOUND CARE NURSE FOR ANY QUESTION AND CHANGE OF WOUND CONDITION.
[2018-04-27 16:58] VITALS: BP 132/65
--- NOTE | 2018-04-27 19:26 | NUR ---
PATIENT REPORT GIVEN AT BEDSIDE. PATIENT ENDORSED IN STABLE CONDITION
--- NOTE | 2018-04-27 19:30 | NUR ---
RECEIVED PT AWAKE, SMILES BUT NONVERBAL, CAN FOLLOW SIMPLE COMMANDS, HX OF DEVELOPMENTAL DELAY, VITAL SIGNS TAKEN, ORAL TEMP-102, FLACC-0, COOLING MEASURES INITIATED, IVF INFUSING WELL, SAFETY MEASURES IN PLACE, SIDE RAILS UP AND BED ALARM ON, WILL REPOSITION Q2H AND OFFLOAD PRESSURE AREAS, CALL LIGHT WITHIN REACH.
[2018-04-27 20:00] VITALS: BP 121/61
[2018-04-27] MEDS: VANCOMYCIN 1GM/DEXT 5% PREMIX 200 ML IV SCH (20:14)
--- NOTE | 2018-04-27 20:15 | NUR ---
BLOOD SUGAR CHECKED WITH 159 RESULT, COVERAGE GIVEN, TYLENOL CRUSHED AND GIVEN WITH APPLE SAUCE, TOLERATED WELL, VANCOMYCIN IVPB ADMINISTERED, ALL NEED ANTICIPATED.
[2018-04-28] VITALS: BP 125/68
--- NOTE | 2018-04-28 | NUR ---
PT SLEEPING, OPEN EYES TO TOUCH, VITAL SIGNS STABLE, ORAL TEMP-99.2, IVF INFUSING WELL, REPOSITIONED Q2H AND OFFLOAD PRESSURE AREAS, CONTINUE TO MONITOR CLOSELY.
--- NOTE | 2018-04-28 02:30 | NUR ---
PT PULLED OUT IV LINE, CANNULA INTACT, NEW IV LINE INSERTED TO LEFT HAND, SITE WRAPPED WITH ROLLED GAUZE, RESUMED IVF, MONITORED CLOSELY.
[2018-04-28 04:00] VITALS: BP 142/75
--- NOTE | 2018-04-28 04:00 | NUR ---
PT SLEEPING, OPEN EYES TO TOUCH, VITAL SIGNS STABLE, AFEBRILE, FLACC-0, INCONTINENT OF URINE, CLEANED AND REPOSITIONED, MONITORED CLOSELY.
[2018-04-28] MEDS: NACL 0.9% 1,000 ML IV SCH ×2 (05:43→10:55)
--- NOTE | 2018-04-28 06:10 | NUR ---
PT SEEN WITH IV LINE OUT, CANNULA INTACT, NEW IV LINE INSERTED TO LEFT HAND, SITE COVERED WITH ROLLED GAUZE AND TONYA WRAPPED, RESUMED IVF, PT PROVIDED WITH WATER, TOLERATED WELL, MONITORED CLOSELY.
[2018-04-28] MEDS: BLOOD GLUCOSE MONITORING 1 DEV DEV FS SCH ×4 (06:36→19:59)
--- NOTE | 2018-04-28 07:23 | NUR ---
PT AWAKE, NO SIGNS OF DISTRESS, REPORT GIVEN TO CHRISTI STEEN FOR CONTINUITY OF CARE.
--- NOTE | 2018-04-28 07:23 | NUR ---
RECEIVED PATIENT REPORT AT BEDSIDE. PATIENT IS AWAKE AND ALERT. NO S/S OF DISTRESS. FALL PRECAUTIONS IN PLACE. PT ON TELE MONITORING. WILL CONTINUE TO MONITOR
--- NOTE | 2018-04-28 08:00 | NUR ---
ASSISTED PATIENT WITH BREAKFAST. PATIENT CONSUMED 100% OF HER MEAL.
[2018-04-28] MEDS: CEFEPIME 1,000 MG in DEXTROSE 5% 50 ML IV SCH (09:20)
[2018-04-28] MEDS: ENOXAPARIN 40 MG/0.4 ML SYR SUBQ SCH (09:27)
--- NOTE | 2018-04-28 09:43 | NUR ---
PATIENT SEEN BY DR BENITES. MADE DR AWARE OF PATIENT'S POTASSIUM LEVEL
--- NOTE | 2018-04-28 11:41 | NUR ---
PT'S SISTER AT BEDSIDE. PATIENT ASLEEP IN BED. NO S/S OF DISTRESS NOTED AT THIS TIME
[2018-04-28] MEDS: THERAHONEY GEL 42.5 GM TP SCH (11:42)
[2018-04-28 12:57] VITALS: BP 134/65
--- NOTE | 2018-04-28 13:00 | NUR ---
PATIENT'S SISTER PRESENT IN THE ROOM. PER SISTER, PATIENT TAKES SEIZURE MEDICATIONS. PAGED DR BENITES
[2018-04-28] MEDS: ACETAMINOPHEN 325 MG TAB PO PRN (13:58)
--- NOTE | 2018-04-28 13:58 | NUR ---
TEMP 101.5. COOLING MEASURES PUT IN PLACE. PRN TYLENOL ADMINISTERED. WILL CONTINUE TO MONITOR
--- NOTE | 2018-04-28 15:01 | NUR ---
TEMP RECHECKED 99.5. NO S/S OF DISTRESS NOTED
[2018-04-28 16:00] VITALS: BP 140/70
--- NOTE | 2018-04-28 16:30 | NUR ---
RECEIVED BEDSIDE REPORT FROM CHRISTI STEEN. PT STABLE, AWAKE, AND ALERT. NO SIGNS OF DISTRESS NOTED. NO REDNESS, SWELLING, OR INFLAMMATION NOTED ON IV SITE. BED IN LOWEST POSITION. CALL LINDQUIST WITHIN REACH. SAFETY MEASURES IN PLACE. PLAN OF CARE REVIEWED.
[2018-04-28] MEDS ORDERED: GUAIFENESIN PO SCH (18:15)
[2018-04-28] MEDS ORDERED: DEXTROMETHORPHAN PO SCH (18:15)
[2018-04-28] MEDS ORDERED: [UNRECOGNIZED DRUG - OTHER] PO SCH (18:15)
[2018-04-28] MEDS ORDERED: LORazepam 1 MG TAB PO PRN (18:15)
--- NOTE | 2018-04-28 18:30 | NUR ---
SPOKE WITH DR. BENITES REGARDING PT'S PLAN OF CARE.
[2018-04-28] MEDS ORDERED: guaiFENesin DM 200/20 MG-10 ML 10 ML UDC PO PRN (18:55)
--- NOTE | 2018-04-28 19:15 | NUR ---
ENDORSED PT TO CHRISTI CASAREZ FOR CONTINUITY OF CARE. PT STABLE, AWAKE, AND ALERT. SISTER AT THE BEDSIDE.
--- NOTE | 2018-04-28 19:20 | NUR ---
RECEIVED PATIENT AWAKE LYING ON BED WITH HOB ELEVATED ACCOMPANIED BY FAMILY MEMBER. RESPIRATION EVEN AND UNLABORED. EXPLAINED TO FAMILY MEMBERS PLAN OF CARE. FALL/ SEIZURES PRECAUTION APPLIED. CALL LIGHT WITHIN REACH. WILL CONTINUE TO MONITOR.
[2018-04-28] MEDS ORDERED: POTASSIUM CHLORIDE 40 MEQ, LIDOCAINE MPF 1% - 5 mL VIAL 25 MG in NACL 0.9% 250 ML IV SCH (19:30)
[2018-04-28 20:00] VITALS: BP 111/72
[2018-04-28] MEDS: VANCOMYCIN 1GM/DEXT 5% PREMIX 200 ML IV SCH (21:00)
[2018-04-28] MEDS: carBAMazepine 200 MG TAB PO SCH (21:00)
--- NOTE | 2018-04-28 21:00 | NUR ---
V/S TAKEN AND RECORDED. SCHEDULE MEDICATION GIVEN TOLERATED WELL. HOB ELEVATED AND PLACE IN COMFORTABLE POSITION. NO S/S OF DISTRESS NOTED. WILL CONTINUE TO MONITOR.
[2018-04-28] MEDS: levETIRAcetam 500 MG TAB PO SCH (21:15)
[2018-04-28] MEDS: QUEtiapine FUMARATE 100 MG TAB PO SCH (21:15)
[2018-04-28] MEDS: LISINOPRIL 10 MG TAB PO SCH (21:16)
[2018-04-28] MEDS ORDERED: MAG SULF 2000 MG/WATER PREMIX 100 ML IV SCH (23:30)
[2018-04-29] VITALS: BP 131/93
--- NOTE | 2018-04-29 | NUR ---
V/S TAKEN AND RECORDED. NO S/S OF DISTRESS NOTED.
--- NOTE | 2018-04-29 03:00 | NUR ---
SEEN PATIENT AWAKE ON BED. SCD IN PLACE. NO S/S OF DISTRESS NOTED. WILL CONTINUE TO MONITOR.
[2018-04-29 04:00] VITALS: BP 135/75
--- NOTE | 2018-04-29 04:30 | NUR ---
AM CARE DONE. PATIENT CLEANED AND CHANGED APPLIED OPTIFOAM IN SACRAL AREA. HEEL PROTECTOR IN PLACE. SCD ON BOTH LE.REPOSITIONED TO HER SIDE. CALL LIGHT WITHIN REACH. WILL CONTINUE TO MONITOR.
[2018-04-29 06:12] LABS: HEMOGLOBIN 7.5 g/dL (12.0-16.0); MEAN CORPUSCULAR HEMOGLOBIN 28 pg (27-31); MEAN CORPUSCULAR HGB CONC 33 g/dL (33-37); MEAN CORPUSCULAR VOLUME 86.1 fL (80-94); PLATELET COUNT (AUTO) 397 K/uL (140-450); RED BLOOD CELL COUNT(AUTO) 2.67 MIL/uL (4.20-5.40); RED CELL DISTRIBUTION WIDTH 14.3 % (11.6-13.7)
[2018-04-29] MEDS: INSULIN LISPRO SLIDING SCALE 100 UNITS/ML VIAL SUBQ PRN ×3 (06:18→20:34)
[2018-04-29] MEDS: BLOOD GLUCOSE MONITORING 1 DEV DEV FS SCH ×4 (06:20→20:32)
[2018-04-29 06:45] LABS: ANION GAP 10.6 (8-16); CARBON DIOXIDE 25.6 mmol/L (21-32); CREATININE 0.6 mg/dL (0.6-1.3); POTASSIUM 3.2 mmol/L (3.5-5.1)
--- NOTE | 2018-04-29 07:25 | NUR ---
ENDORSEMENT GIVEN TO AM SHIFT RN AT BEDSIDE FOR CONTINUITY OF CARE. CALL LIGHT WITHIN REACH. PATIENT IN STABLE CONDITION.
--- NOTE | 2018-04-29 07:26 | NUR ---
RECEIVED BEDSIDE REPORT FROM CHRISTI CASAREZ. PT STABLE, AWAKE, AND ALERT. NO SIGNS OF DISTRESS NOTED. NO REDNESS, SWELLING, OR INFLAMMATION NOTED ON IV SITE. BED IN LOWEST POSITION. CALL LINDQUIST WITHIN REACH. SAFETY MEASURES IN PLACE. PLAN OF CARE REVIEWED.
[2018-04-29 08:00] VITALS: BP 164/56
[2018-04-29 08:11] LABS: WHITE BLOOD COUNT (AUTO) 35.1 K/uL (4.8-10.8)
[2018-04-29 08:12] LABS: LYMPHOCYTES % (MANUAL) 2 % (20-46); MONOCYTES % (MANUAL) 3 % (5-12)
--- NOTE | 2018-04-29 08:36 | NUR ---
Investigator Narcotics Note: Late entry for 04/28/18: Per arts administrator or manager of [facility], patient has been living at their facility over 7 years. He stated patient is not conserved and has a nephew named Stewart . Harrison reported patient's welfare case worker at [facility] is Zakia Tao . He told me their transportation economics teacher is available 21/09 and they do not have an INDUSTRIAL TRAINER political directorwell site drilling engineer. Education Managers and/or Journalism Internship will follow up as needed.
[2018-04-29] MEDS: NIFEdipine 30 MG TABER PO SCH (09:47)
[2018-04-29] MEDS: levETIRAcetam 500 MG TAB PO SCH ×2 (09:48→20:35)
[2018-04-29] MEDS: QUEtiapine FUMARATE 100 MG TAB PO SCH ×2 (09:48→20:36)
[2018-04-29] MEDS: DOCUSATE SODIUM 100 MG GELCAP PO SCH (09:48)
[2018-04-29] MEDS: carBAMazepine 200 MG TAB PO SCH ×2 (09:49→20:36)
[2018-04-29] MEDS: hydrOXYzine PAMOATE 25 MG CAP PO SCH ×3 (09:50→17:34)
--- NOTE | 2018-04-29 09:50 | NUR ---
ADMINISTERED SCHEDULED MEDICATIONS. PT TOLERATED WELL. NO OTHER NEEDS AT THIS TIME. SISTER AT THE BEDSIDE.
[2018-04-29] MEDS: CEFEPIME 1,000 MG in DEXTROSE 5% 50 ML IV SCH (09:53)
[2018-04-29] MEDS: ENOXAPARIN 40 MG/0.4 ML SYR SUBQ SCH (09:55)
[2018-04-29] MEDS: LISINOPRIL 10 MG TAB PO SCH ×2 (09:56→20:35)
--- NOTE | 2018-04-29 11:15 | NUR ---
PT REPOSITIONED, LINENS AND GOWNS CHANGED. SISTER AT THE BEDSIDE. NO OTHER NEEDS AT THIS TIME.
[2018-04-29 12:00] VITALS: BP 145/62
[2018-04-29] MEDS ORDERED: POTASSIUM CHL 40 MEQ/ D5-1/2NS 1,000 ML IV SCH (12:10)
--- NOTE | 2018-04-29 12:10 | NUR ---
RECEIVED VERBAL ORDERS FROM DR. BENITES FOR MAGNESIUM SULFATE 2G IV, AND POTASSIUM CHLORIDE 40 MEQ IV WITH LIDOCAINE.
[2018-04-29] MEDS: ACETAMINOPHEN 325 MG TAB PO PRN (12:51)
--- NOTE | 2018-04-29 12:51 | NUR ---
ADMINISTERED PRN TYLENOL FOR TEMP OF 101.5. WILL CONTINUE TO MONITOR.
[2018-04-29] MEDS ORDERED: MAG SULF 2000 MG/WATER PREMIX 50 ML IV SCH (13:00)
[2018-04-29] MEDS: THERAHONEY GEL 42.5 GM TP SCH (13:02)
--- NOTE | 2018-04-29 13:03 | NUR ---
ADMINISTERED SCHEDULED MEDICATIONS. PT TOLERATED WELL. SISTER AT THE BEDSIDE.
--- NOTE | 2018-04-29 14:10 | NUR ---
CALLED JOHN, LEAD STAFF, FROM [facility] ABOUT FOLLOW UP APPOINTMENT HE SAID HE WOULD HAVE VIMAL , ADVERTISEMENT COMPOSITOR CALL MED. I RECEIVED A CALL FROM VIMAL WHO SAID THAT THEY HAVE A PHYSICIAN THAT COMES TO THE FACILITY. HE ALSO SAID THAT THE PATIENT'S PHYSICIAN IS DR. NOAH LUCAS, [phone]. I CALLED 'S OFFICE AND WAS TOLD THAT THE PHYSICIAN SEES THE PATIENT AT THE FACILITY, AND TO CALL THE WHEN THE PATIENT IS DISCHARGED.
[2018-04-29 16:00] VITALS: BP 131/72
[2018-04-29] MEDS ORDERED: POTASSIUM CHLORIDE 40 MEQ, LIDOCAINE MPF 1% - 5 mL VIAL 25 MG in NACL 0.9% 250 ML IV SCH (16:00)
--- NOTE | 2018-04-29 16:10 | NUR ---
PT REPOSITIONED, CHUCKS CHANGED.
[2018-04-29] MEDS: PARoxetine 20 MG TAB PO SCH (16:28)
[2018-04-29] MEDS: SIMVASTATIN 20 MG TAB PO SCH (16:28)
[2018-04-29] MEDS ORDERED: HYDRAGUARD CREAM TP ONE (16:30)
[2018-04-29] MEDS ORDERED: HYDRAGUARD CREAM TP SCH (17:00)
--- NOTE | 2018-04-29 17:35 | NUR ---
ADMINISTERED SCHEDULED MEDICATIONS. PT TOLERATED WELL. SISTER AT THE BEDSIDE. NO OTHER NEEDS AT THIS TIME.
--- NOTE | 2018-04-29 19:25 | NUR ---
ENDORSED PT TO CHRISTI MATAMOROS FOR CONTINUITY OF CARE. PT STABLE, AWAKE, AND ALERT.
--- NOTE | 2018-04-29 19:48 | NUR ---
REQUESTED BY DAXA/RN TO SEE PATIENT FOR PRN THERAPY CAREGIVER AT BEDSIDE REQUESTING THERAPY PATIENT AGITATED
--- NOTE | 2018-04-29 19:50 | NUR ---
PT WAS BREATHING HARD. 02 SAT AT 96%. WILL INFORM RT TO CHECK ON PT. IF BREATHING TX NEEDED.
[2018-04-29 20:00] VITALS: BP 140/75
--- NOTE | 2018-04-29 20:42 | NUR ---
PT KICKING AND BITING, WITH SISTER AT BEDSIDE. ATIVAN ADMINISTERED ORDERED.
--- NOTE | 2018-04-29 21:15 | NUR ---
PT BREATHING CALMED DOWN. PT NOW SLEEPING COMFORTABLY. NO RESPORATORY DISTRESS NOTED. NO ANXIETY NOTED AT THIS TIME.WILL CONTINUE TO MONITOR
[2018-04-30] VITALS: BP 142/76
--- NOTE | 2018-04-30 02:00 | NUR ---
PT SLEEPING ON BED. NO S/SX'S OF DISTRESS. NO S/SX'S OF PAIN. WILL CONTINUE TO MONITOR
[2018-04-30 04:00] VITALS: BP 140/77
[2018-04-30] MEDS: BLOOD GLUCOSE MONITORING 1 DEV DEV FS SCH ×4 (06:55→21:26)
[2018-04-30] MEDS: INSULIN LISPRO SLIDING SCALE 100 UNITS/ML VIAL SUBQ PRN ×3 (06:56→21:23)
--- NOTE | 2018-04-30 07:14 | NUR ---
ENDORSED TO AM SHIFT FOR CONTINUITY OF CARE.AFEBRILE . PT IN STABLE CONDITION.
--- NOTE | 2018-04-30 07:15 | NUR ---
RECEIVED BEDSIDE REPORT FROM CHRISTI MATAMOROS. PT STABLE, SLEEPING, BUT EASILY AROUSABLE. NO SIGNS OF DISTRESS NOTED. NO SOB NOTED. NO REDNESS, SWELLING, OR INFLAMMATION NOTED ON IV SITE. CALL LINDQUIST WITHIN REACH. BED IN LOWEST POSITION, BED ALARM ON. SAFETY MEASURES IN PLACE. PLAN OF CARE REVIEWED.
[2018-04-30 07:52] LABS: BASOPHILS % (AUTO) 0.2 % (0.0-2.0); EOSINOPHILS % (AUTO) 0.2 % (0.0-4.0); LYMPHOCYTES # (AUTO) 0.7 K/uL (2.5-16.5); LYMPHOCYTES % (AUTO) 2.6 % (20.5-51.1); MEAN CORPUSCULAR HEMOGLOBIN 28 pg (27-31); MEAN CORPUSCULAR HGB CONC 33 g/dL (33-37); MEAN CORPUSCULAR VOLUME 85.5 fL (80-94); MONOCYTES # (AUTO) 1.5 K/uL (0.8-1.0); MONOCYTES % (AUTO) 5.3 % (1.7-9.3); NEUTROPHILS # (AUTO) 26.1 K/uL (1.8-7.7); NEUTROPHILS % (AUTO) 91.7 % (42.2-75.2); PLATELET COUNT (AUTO) 395 K/uL (140-450); RED BLOOD CELL COUNT(AUTO) 2.35 MIL/uL (4.20-5.40); RED CELL DISTRIBUTION WIDTH 14.3 % (11.6-13.7); WHITE BLOOD COUNT (AUTO) 28.5 K/uL (4.8-10.8)
[2018-04-30 07:54] LABS: ANION GAP 7.3 (8-16); CARBON DIOXIDE 28.9 mmol/L (21-32); CREATININE 0.5 mg/dL (0.6-1.3); POTASSIUM 3.2 mmol/L (3.5-5.1)
[2018-04-30 08:00] VITALS: BP 159/85
[2018-04-30 08:03] LABS: HEMATOCRIT 20.1 % (36-48); HEMOGLOBIN 6.7 g/dL (12.0-16.0)
--- NOTE | 2018-04-30 08:30 | NUR ---
PAGED DR. BENITES.
[2018-04-30] MEDS: ENOXAPARIN 40 MG/0.4 ML SYR SUBQ SCH (09:00)
--- NOTE | 2018-04-30 09:17 | NUR ---
RECEIVED NEW MEDICATION ORDERS FROM DR. BENITES.
--- NOTE | 2018-04-30 09:55 | NUR ---
ADMINISTERED SCHEDULED MEDICATIONS. PT TOLERATED WELL. SISTER AT THE BEDSIDE. SISTER REFUSED LOVENOX FOR PT. WILL CONTINUE TO MONITOR.
[2018-04-30] MEDS: CEFEPIME 1,000 MG in DEXTROSE 5% 50 ML IV SCH (09:57)
[2018-04-30] MEDS: QUEtiapine FUMARATE 100 MG TAB PO SCH ×2 (09:57→21:21)
[2018-04-30] MEDS: hydrOXYzine PAMOATE 25 MG CAP PO SCH ×3 (09:57→17:20)
[2018-04-30] MEDS: levETIRAcetam 500 MG TAB PO SCH ×2 (09:58→21:21)
[2018-04-30] MEDS: DOCUSATE SODIUM 100 MG GELCAP PO SCH (09:58)
[2018-04-30] MEDS: LISINOPRIL 10 MG TAB PO SCH ×2 (09:59→21:22)
[2018-04-30] MEDS: carBAMazepine 200 MG TAB PO SCH ×2 (09:59→21:21)
[2018-04-30] MEDS: NIFEdipine 30 MG TABER PO SCH (10:00)
[2018-04-30] MEDS: ACETAMINOPHEN 325 MG TAB PO PRN (10:15)
--- NOTE | 2018-04-30 11:00 | NUR ---
RECEIVED SIGNED CONSENT FROM PT'S SISTER FOR BLOOD TRANSFUSION.
[2018-04-30 12:00] VITALS: BP 155/76
[2018-04-30] MEDS ORDERED: MAG SULF 2000 MG/WATER PREMIX 50 ML IV SCH (12:00)
[2018-04-30] MEDS ORDERED: POTASSIUM CHLORIDE 10 MEQ TABER PO SCH (12:00)
--- NOTE | 2018-04-30 12:16 | NUR ---
ADMINISTERED SCHEDULED MEDICATIONS. PT TOLERATED WELL. NO OTHER NEEDS AT THIS TIME.
[2018-04-30] MEDS: THERAHONEY GEL 42.5 GM TP SCH (12:25)
--- NOTE | 2018-04-30 14:20 | NUR ---
PT REPOSITIONED. PT TOLERATED WELL. NO OTHER NEEDS AT THIS TIME.
[2018-04-30 16:00] VITALS: BP 145/67
--- NOTE | 2018-04-30 16:55 | NUR ---
1 UNIT OF PACKED RBC STARTED. VITALS STABLE, BP: 145/71, TEMP: 98.3, HR: 105, RR: 20, FLACC 0.
--- NOTE | 2018-04-30 17:10 | NUR ---
NO REACTIONS NOTED DURING FIRST 15 MINUTES OF BLOOD TRANSFUSION.
[2018-04-30] MEDS: SIMVASTATIN 20 MG TAB PO SCH (17:18)
[2018-04-30] MEDS: PARoxetine 20 MG TAB PO SCH (17:19)
--- NOTE | 2018-04-30 17:22 | NUR ---
ADMINISTERED SCHEDULED MEDICATIONS. PT TOLERATED WELL. SISTER AT THE BEDSIDE. PT REPOSITIONED, LINENS CHANGED. NO OTHER NEEDS AT THIS TIME.
--- NOTE | 2018-04-30 18:40 | NUR ---
LAST VITALS TAKEN DURING BLOOD TRANSFUSION, PT STABLE, AWAKE, AND ALERT. BP: 143/80, TEMP: 99.1, HR: 107, RR: 18, FLACC 0.
--- NOTE | 2018-04-30 19:20 | NUR ---
ENDORSED PT TO CHRISTI MATAMOROS FOR CONTINUITY OF CARE. PT STABLE, AWAKE, AND ALERT. SISTER AT THE BEDSIDE.
--- NOTE | 2018-04-30 19:21 | NUR ---
RECEIVED BEDSIDE REPORT AM NURSE. SISTER AT BEDSIDE. PT AWAKE, WITH RBC 1 UNIT BLOOD TRANSFUSION ONGOING ON LEFT HAND.PT TOLERATING WELL ON THE PROCEDURE. NO SIGNS OF DISTRESS NOTED. NO SOB NOTED. NO REDNESS, SWELLING, OR INFLAMMATION NOTED ON IV SITE. RECEIVED WITH NO RIGHT AC IV SITE. CALL LINDQUIST WITHIN REACH. BED IN LOWEST POSITION, BED ALARM ON. SAFETY MEASURES IN PLACE. PLAN OF CARE REVIEWED.
--- NOTE | 2018-04-30 19:40 | NUR ---
BLOOD TRANSFUSION ENDED AT THIS TIME. PT TOLERATING PROCEDURE WELL. WILL CONTINUE TO MONITOR FOR ANY TRANSVERSE REACTIONS POST BT
[2018-04-30 20:00] VITALS: BP 167/91
--- NOTE | 2018-04-30 21:15 | NUR ---
TAKEN VITAL SIGNS POST BT TRANSFUSION: 99.0.100,140/80,18, 96%, FLACC 0
--- NOTE | 2018-04-30 22:41 | NUR ---
PT LEFT HAND IV SITE NOT WORKING POST BLOOD TRANFUSION. SITE LEAKING. D/C THE IV SITE ON THE LEFT HAND
[2018-05-01 01:00] VITALS: BP 146/77
--- NOTE | 2018-05-01 02:00 | NUR ---
REINSERTED IVF ON LEFT HAND G 24, ON SALINE LOCK
[2018-05-01 04:00] VITALS: BP 146/77
[2018-05-01] MEDS: BLOOD GLUCOSE MONITORING 1 DEV DEV FS SCH ×3 (07:33→17:05)
--- NOTE | 2018-05-01 07:47 | NUR ---
ENDORSED TO AM SHIFT FOR CONTINUITY OF CARE. PT IN STABLE CONDITION.
--- NOTE | 2018-05-01 07:50 | NUR ---
RECEIVED PT FROM RADIOLOGY DIRECTOR NURSESHILOH, PT IS AWAKE AND LYING ON THE BED WITH SIDE RAILS UP AND CALL LIGHT WITHIN REACH, PT HAS AN IV LINE ON THE LEFT HAND G.22, ON SALINE LOCK. FALL AND SAFETY PRECAUTION INITIATED, PT IS APHASIC AND HAS MENTAL DELAY. WILL CONTINUE PRINCE MONITOR PT.
[2018-05-01 08:00] VITALS: BP 156/84
--- NOTE | 2018-05-01 08:20 | NUR ---
PT IS AWAKE AND VITAL SIGN TAKEN AND IS WITHIN NORMAL LIMIT. NO SIGN OF DISTRESS NOTED AND WILL MONITOR PT.
[2018-05-01] MEDS: levETIRAcetam 500 MG TAB PO SCH (08:32)
[2018-05-01] MEDS: DOCUSATE SODIUM 100 MG GELCAP PO SCH (08:32)
[2018-05-01] MEDS: QUEtiapine FUMARATE 100 MG TAB PO SCH (08:32)
[2018-05-01] MEDS: LISINOPRIL 10 MG TAB PO SCH (08:33)
[2018-05-01] MEDS: carBAMazepine 200 MG TAB PO SCH (08:33)
[2018-05-01] MEDS: NIFEdipine 30 MG TABER PO SCH (08:33)
[2018-05-01] MEDS: CEFEPIME 1,000 MG in DEXTROSE 5% 50 ML IV SCH (08:34)
--- NOTE | 2018-05-01 08:35 | NUR ---
PT IS AWAKE AND VITAL SIGNS CHECKED PER PARAMETER, ORAL AND IV MEDICATIONS WERE GIVEN AND PT TOLERATED IT, NO SIGN OF DISTRESS NOTED AND WILL MONITOR PT.
[2018-05-01] MEDS: ENOXAPARIN 40 MG/0.4 ML SYR SUBQ SCH (08:46)
[2018-05-01] MEDS: hydrOXYzine PAMOATE 25 MG CAP PO SCH ×3 (09:00→17:05)
[2018-05-01 12:00] VITALS: BP 135/74
[2018-05-01] MEDS: THERAHONEY GEL 42.5 GM TP SCH (13:00)
[2018-05-01] MEDS: INSULIN LISPRO SLIDING SCALE 100 UNITS/ML VIAL SUBQ PRN (14:03)
[2018-05-01] MEDS: PARoxetine 20 MG TAB PO SCH (15:10)
[2018-05-01] MEDS: SIMVASTATIN 20 MG TAB PO SCH (15:11)
--- NOTE | 2018-05-01 15:11 | NUR ---
PT IS AWAKE AND LYING ON THE BED, ORAL MEDICATIONS WERE GIVEN AND PT TOLERATED IT. NO SIGN OF DISTRESS NOTED AND WILL MONITOR PT.
[2018-05-01 16:00] VITALS: BP 133/75
[2018-05-01] MEDS ORDERED: CIPR250T6 PO (16:25)
[2018-05-01] MEDS ORDERED: TAM75 PO (16:25)
--- NOTE | 2018-05-01 17:05 | NUR ---
PT IS AWAKE AND VITAL SIGNS WAS TAKEN AND IS WITHIN NORMAL LIMIT, BLOD GLUCOSE CHECKED DONE AND RESULT IS 132 AND NO INSULIN COVERAGE NEEDED. WILL MONITOR PT.
--- NOTE | 2018-05-01 17:15 | NUR ---
PT WAS CLEANED AND WOUND ASSESSMENT WERE DONE, PICTURES WERE TAKEN AND ATTACHED TO CHART
--- NOTE | 2018-05-01 17:30 | NUR ---
WOUND CARE FOR THE PT WAS TAUGHT TO SENIOR CONTROL SYSTEMS ENGINEER OF VIMAL RAMOS AND VERBALIZED UNDERSTANDING.
--- NOTE | 2018-05-01 18:05 | NUR ---
DISCHARGED PT VIA WHEELCHAIR WITH SISTER AND [facility]ALTH PROMOTION OFFICER, VIMAL. DISCHARGED INSTRUCTIONS AND PRESCRIPTIONS INSTRUCTIONS GIVEN TO HEALTH PROMOTION OFFICER AND VERBALIZED UNDERSTANDING, PT IS UNABLE TO COMPREHEND. IV LINE AND ARM BAND REMOVED. PT IS STABLE AT THIS TIME.
--- NOTE | 2018-05-04 08:40 | NUR ---
Faxed H&P to [facility] requested by Leticia. .
--- NOTE | 2018-05-16 15:51 | NUR ---
SPOKE WITH VIMAL FROM [facility]. THIS PATIENT WAS SEEN BY DR. LUCAS ON 05/08/18.
== END 2018-05-01 18:05 | disposition home health service (06) | DRG 720 ==
LOC: MED 17:23 → MTU 21:34
PROVIDERS: ADMIT Hospitalist; ATTEND Hospitalist
PROC: 30233N1 Transfusion of Nonautologous Red Blood Cells into Peripheral Vein, Percutaneous Approach (ICD-10-PCS; principal; 2018-04-30)
DX: A41.89 Other specified sepsis (principal); E44.0 Moderate protein-calorie malnutrition; E83.42 Hypomagnesemia; E87.1 Hypo-osmolality and hyponatremia; E11.9 Type 2 diabetes mellitus without complications; D64.9 Anemia, unspecified; E78.5 Hyperlipidemia, unspecified; E87.6 Hypokalemia; N39.0 Urinary tract infection, site not specified; G40.909 Epilepsy, unspecified, not intractable, without status epilepticus; G80.9 Cerebral palsy, unspecified; I10 Essential (primary) hypertension; F79 Unspecified intellectual disabilities; J10.1 Influenza due to other identified influenza virus with other respiratory manifestations; Z79.899 Other long term (current) drug therapy; Z68.26 Body mass index [BMI] 26.0-26.9, adult; Z79.84 Long term (current) use of oral hypoglycemic drugs
CPT/HCPCS: 36415; 71045; 80048; 80053; 80156; 80202; 81001; 82948; 83605; 83735; 83880; 85018; 85025; 86886; 86900; 86901; 86920; 87040; 87081; 87086; 87186; 87804; 93005; 94640; 96365; 96368; 99285; C1758; J0692; J1650; J1815; J2001; J2270; J2543; J3370; J3475; J3480; J7030; J7060; J7613; P9016; Q0092; Q0177

== ENCOUNTER 2018-07-22 13:43 | Emergency (ER) | payer OTHER ==
[~2018-07-22] VITALS: Ht 154.9 cm; Wt 56.7 kg
[~2018-07-22 13:43] MED LIST changes: +CIPR250T6 PO; +TAM75 PO
--- NOTE | 2018-07-22 13:45 | NUR ---
PATIENT TAKEN TO BED 4 BY EMS
[2018-07-22 13:49] VITALS: BP 142/65
--- NOTE | 2018-07-22 14:00 | NUR ---
BIBA W C/O ALOC AND LOW BLOOD SUGAR. STAFF AT BOARD AND CARE REPORTED LETHARGY AND DELIO. BLOOD SUGAR ON SCENE 50, EMS STARTED INFUSION OF 10% D/W 250 ML. BLOOD SUGAR WAS 119 ON ARRIVAL TO [facility]. PER EMS, PT BACK TO BASE LINE, NON VERBAL, GCS 15. CAREGIVER DENIES N/V/D; SKIN IS PINK/WARM/DRY. LUNGS CLEAR BL; HR EVEN AND REGULAR; PT DENIES ANY FEVER, CP, SOB, OR COUGH AT THIS TIME.
--- NOTE | 2018-07-22 14:20 | NUR ---
ERMD AT BEDSIDE
[2018-07-22] MEDS ORDERED: NACL 0.9% 1,000 ML IV ONE (14:25)
[2018-07-22 15:01] LABS: BASOPHILS % (AUTO) 0.5 % (0.0-2.0); EOSINOPHILS # (AUTO) 0.1 K/uL (0-0.4); EOSINOPHILS % (AUTO) 1.4 % (0.0-4.0); HEMATOCRIT 32.6 % (36-48); HEMOGLOBIN 10.8 g/dL (12.0-16.0); LYMPHOCYTES # (AUTO) 1.7 K/uL (2.5-16.5); LYMPHOCYTES % (AUTO) 17.5 % (20.5-51.1); MEAN CORPUSCULAR HEMOGLOBIN 29 pg (27-31); MEAN CORPUSCULAR HGB CONC 33 g/dL (33-37); MEAN CORPUSCULAR VOLUME 88.6 fL (80-94); MONOCYTES # (AUTO) 0.7 K/uL (0.8-1.0); MONOCYTES % (AUTO) 7.3 % (1.7-9.3); NEUTROPHILS # (AUTO) 6.9 K/uL (1.8-7.7); NEUTROPHILS % (AUTO) 73.3 % (42.2-75.2); PLATELET COUNT (AUTO) 292 K/uL (140-450); RED BLOOD CELL COUNT(AUTO) 3.68 MIL/uL (4.20-5.40); RED CELL DISTRIBUTION WIDTH 15.2 % (11.6-13.7); WHITE BLOOD COUNT (AUTO) 9.4 K/uL (4.8-10.8)
--- NOTE | 2018-07-22 15:05 | NUR ---
URINE COLLECTED AND SENT TO LAB
[2018-07-22 15:17] LABS: ALBUMIN 3.1 g/dL (3.4-5.0); ANION GAP 9.6 (8-16); CARBON DIOXIDE 27.4 mmol/L (21-32); CREATININE 0.6 mg/dL (0.6-1.3); TOTAL BILIRUBIN 0.2 mg/dL (0.0-1.0)
[2018-07-22 15:26] LABS: APPEARANCE,URINE CLEAR (CLEAR); BILIRUBIN,URINE NEGATIVE (NEGATIVE); BLOOD, URINE NEGATIVE (NEGATIVE); COLOR,URINE YELLOW (YELLOW); LEUKOCYTE ESTERASE ,URINE NEGATIVE (NEGATIVE); NITRITE, URINE NEGATIVE (NEGATIVE); PH,URINE 5.5 (5.0-9.0); UGLUCOSE TRACE (NEGATIVE)
[2018-07-22] MEDS ORDERED: NACL 0.9% 500 ML IV ONE (15:55)
[2018-07-22 16:19] VITALS: BP 130/64
--- NOTE | 2018-07-22 16:21 | NUR ---
Patient discharged with v/s stable. Written and verbal after care instructions given and explained. Patient verbalized understanding. Ambulatory with steady gait. All questions addressed prior to discharge. Advised to follow up with PMD.
== END 2018-07-22 16:21 | disposition home or self-care (01) ==
LOC: MED 13:43
DX: E86.0 Dehydration (principal); E11.9 Type 2 diabetes mellitus without complications; I10 Essential (primary) hypertension; Z79.899 Other long term (current) drug therapy; Z79.84 Long term (current) use of oral hypoglycemic drugs
CPT/HCPCS: 36415; 71045; 80053; 81003; 82948; 85025; 96360; 96361; 99284; J7030

== ENCOUNTER 2018-10-27 12:57 | Observation (INO) | payer OTHER ==
[~2018-10-27] VITALS: Ht 149.9 cm; Wt 62.1 kg
[2018-10-27 13:13] VITALS: BP 169/87
[2018-10-27] MEDS ORDERED: NACL 0.9% 1,000 ML IV ONE (13:45)
[2018-10-27] MEDS ORDERED: KETOROLAC 30 MG/ML VIAL IVP ONE (13:45)
[2018-10-27 14:35] LABS: BASOPHILS % (AUTO) 0.4 % (0.0-2.0); EOSINOPHILS # (AUTO) 0.2 K/uL (0-0.4); EOSINOPHILS % (AUTO) 2.3 % (0.0-4.0); HEMATOCRIT 32.5 % (36-48); LYMPHOCYTES % (AUTO) 26.1 % (20.5-51.1); MEAN CORPUSCULAR HEMOGLOBIN 29 pg (27-31); MEAN CORPUSCULAR HGB CONC 34 g/dL (33-37); MEAN CORPUSCULAR VOLUME 86.2 fL (80-94); MONOCYTES # (AUTO) 0.8 K/uL (0.8-1.0); MONOCYTES % (AUTO) 11.3 % (1.7-9.3); NEUTROPHILS # (AUTO) 4.5 K/uL (1.8-7.7); NEUTROPHILS % (AUTO) 59.9 % (42.2-75.2); PLATELET COUNT (AUTO) 255 K/uL (140-450); RED BLOOD CELL COUNT(AUTO) 3.77 MIL/uL (4.20-5.40); RED CELL DISTRIBUTION WIDTH 13.7 % (11.6-13.7); WHITE BLOOD COUNT (AUTO) 7.5 K/uL (4.8-10.8)
[2018-10-27 14:48] LABS: ALBUMIN 3.3 g/dL (3.4-5.0); ANION GAP 10.8 (8-16); CARBON DIOXIDE 28.6 mmol/L (21-32); CREATININE 0.7 mg/dL (0.6-1.3); POTASSIUM 4.4 mmol/L (3.5-5.1); TOTAL BILIRUBIN 0.3 mg/dL (0.0-1.0)
[2018-10-27] MEDS ORDERED: MAG SULF 2000 MG/WATER PREMIX 50 ML IV ONE (15:10)
[2018-10-27 15:33] LABS: APPEARANCE,URINE HAZY (CLEAR); BILIRUBIN,URINE NEGATIVE (NEGATIVE); BLOOD, URINE NEGATIVE (NEGATIVE); COLOR,URINE YELLOW (YELLOW); LEUKOCYTE ESTERASE ,URINE TRACE (NEGATIVE); NITRITE, URINE POSITIVE (NEGATIVE); UGLUCOSE NEGATIVE (NEGATIVE)
[2018-10-27 15:49] LABS: RBC,URINE 0-5 /HPF (0-5)
[2018-10-27] MEDS ORDERED: DEXTROMETHORPHAN PO SCH (15:55)
[2018-10-27] MEDS ORDERED: MORPHINE SULFATE 4 MG/ML SYR IVP PRN (15:55)
[2018-10-27] MEDS ORDERED: ACETAMINOPHEN 325 MG PO PRN (15:55)
[2018-10-27] MEDS ORDERED: [UNRECOGNIZED DRUG - OTHER] PO SCH (15:55)
[2018-10-27] MEDS ORDERED: ONDANSETRON 4 MG/2 ML VIAL IVP PRN (15:55)
[2018-10-27] MEDS ORDERED: HYDROcodone/APAP 5/325 MG 1 TAB TAB PO PRN (15:55)
[2018-10-27] MEDS ORDERED: ALBUTEROL 0.083% 2.5 MG/3 ML NEBU IH PRN (15:55)
[2018-10-27] MEDS ORDERED: LORazepam 1 MG TAB PO PRN (15:55)
[2018-10-27] MEDS ORDERED: GUAIFENESIN PO SCH (15:55)
[2018-10-27] MEDS ORDERED: DEXTROSE 50% 50 ML SYR IVP PRN (15:55)
[2018-10-27] MEDS ORDERED: PARoxetine 20 MG TAB PO SCH (16:00)
[2018-10-27] MEDS ORDERED: CARB1ODT4 PO (16:08)
[2018-10-27] MEDS ORDERED: LISI-420 PO (16:08)
[2018-10-27] MEDS ORDERED: [UNRECOGNIZED DRUG - CODE] PO (16:08)
[2018-10-27] MEDS ORDERED: DIPH50CA69 PO (16:08)
[2018-10-27] MEDS ORDERED: PROP20TA29 PO (16:08)
[2018-10-27] MEDS ORDERED: PAX20 PO (16:08)
[2018-10-27] MEDS ORDERED: LORA-476 PO (16:08)
[2018-10-27] MEDS ORDERED: METF1000 PO (16:08)
[2018-10-27] MEDS ORDERED: QUET100T PO ×2 (16:08)
[2018-10-27] MEDS ORDERED: FERR325E14 PO (16:08)
[2018-10-27] MEDS ORDERED: ZIPR80CA1 PO (16:08)
[2018-10-27] MEDS ORDERED: COLL30OI TP (16:09)
[2018-10-27] MEDS ORDERED: ACETAMINOPHEN 325 MG TAB PO PRN (16:10)
[2018-10-27] MEDS ORDERED: cefTRIAXone 1,000 MG VIAL ONE (16:15)
[2018-10-27 17:30] VITALS: BP 179/88
[2018-10-27] MEDS: BLOOD GLUCOSE MONITORING 1 DEV DEV FS SCH ×2 (18:18→20:31)
[2018-10-27] MEDS: AMPICILLIN/SULBACTAM 1.5 GM in NACL 0.9% 50 ML IV SCH (20:15)
[2018-10-27] MEDS: SIMVASTATIN 20 MG TAB PO SCH (20:23)
[2018-10-27] MEDS: levETIRAcetam 500 MG TAB PO SCH (20:23)
[2018-10-27] MEDS: carBAMazepine 200 MG TAB PO SCH (20:24)
[2018-10-27] MEDS: QUEtiapine FUMARATE 100 MG TAB PO SCH (20:24)
[2018-10-27] MEDS: LISINOPRIL 10 MG TAB PO SCH (20:25)
[2018-10-27] MEDS ORDERED: CARBAMAZEPINE 200 MG PO SCH (21:00)
[2018-10-28] VITALS: BP 144/80
[2018-10-28] MEDS: AMPICILLIN/SULBACTAM 1.5 GM in NACL 0.9% 50 ML IV SCH ×4 (00:17→17:45)
[2018-10-28] MEDS: BLOOD GLUCOSE MONITORING 1 DEV DEV FS SCH ×4 (05:40→20:51)
[2018-10-28 07:40] VITALS: BP 210/110
[2018-10-28] MEDS: NIFEdipine 30 MG TABER PO SCH (07:43)
[2018-10-28] MEDS: LISINOPRIL 10 MG TAB PO SCH ×2 (07:44→20:36)
[2018-10-28] MEDS ORDERED: cloNIDine 0.1 MG TAB PO PRN (07:55)
[2018-10-28 07:59] LABS: BASOPHILS # (AUTO) 0.1 K/uL (0.00-0.22); BASOPHILS % (AUTO) 0.8 % (0.0-2.0); EOSINOPHILS # (AUTO) 0.1 K/uL (0-0.4); EOSINOPHILS % (AUTO) 1.5 % (0.0-4.0); HEMATOCRIT 31.8 % (36-48); HEMOGLOBIN 10.8 g/dL (12.0-16.0); LYMPHOCYTES # (AUTO) 1.7 K/uL (2.5-16.5); LYMPHOCYTES % (AUTO) 25.1 % (20.5-51.1); MEAN CORPUSCULAR HEMOGLOBIN 29 pg (27-31); MEAN CORPUSCULAR HGB CONC 34 g/dL (33-37); MEAN CORPUSCULAR VOLUME 85.9 fL (80-94); MONOCYTES # (AUTO) 0.6 K/uL (0.8-1.0); MONOCYTES % (AUTO) 8.6 % (1.7-9.3); NEUTROPHILS # (AUTO) 4.4 K/uL (1.8-7.7); PLATELET COUNT (AUTO) 263 K/uL (140-450); RED CELL DISTRIBUTION WIDTH 13.5 % (11.6-13.7); WHITE BLOOD COUNT (AUTO) 6.9 K/uL (4.8-10.8)
[2018-10-28 08:15] LABS: ALBUMIN 3.3 g/dL (3.4-5.0); ANION GAP 9.8 (8-16); CARBON DIOXIDE 27.9 mmol/L (21-32); CREATININE 0.6 mg/dL (0.6-1.3); MAGNESIUM 1.9 mg/dL (1.8-2.4); POTASSIUM 4.7 mmol/L (3.5-5.1); TOTAL BILIRUBIN 0.3 mg/dL (0.0-1.0)
[2018-10-28] MEDS: QUEtiapine FUMARATE 100 MG TAB PO SCH ×2 (08:47→20:35)
[2018-10-28] MEDS: DOCUSATE SODIUM 100 MG GELCAP PO SCH (08:47)
[2018-10-28] MEDS: carBAMazepine 200 MG TAB PO SCH ×2 (08:48→20:36)
[2018-10-28] MEDS: levETIRAcetam 500 MG TAB PO SCH ×2 (08:48→20:35)
[2018-10-28] MEDS: ENOXAPARIN 40 MG/0.4 ML SYR SUBQ SCH (08:54)
[2018-10-28] MEDS ORDERED: Z-GUARD PASTE TP PRN (11:00)
[2018-10-28] MEDS ORDERED: NACL 0.9% 1,000 ML IV SCH (11:30)
[2018-10-28] MEDS: Z-GUARD PASTE TP SCH (12:17)
[2018-10-28] MEDS: INSULIN LISPRO SLIDING SCALE 100 UNITS/ML VIAL SUBQ PRN (12:18)
[2018-10-28 16:00] VITALS: BP 117/59
[2018-10-28] MEDS: SODIUM CHLORIDE 1 GM TAB PO SCH ×2 (16:32→17:45)
[2018-10-28] MEDS: SIMVASTATIN 20 MG TAB PO SCH (20:36)
[2018-10-28 22:11] LABS: ANION GAP 7.4 (8-16); CARBON DIOXIDE 28.9 mmol/L (21-32); CREATININE 0.5 mg/dL (0.6-1.3); POTASSIUM 4.3 mmol/L (3.5-5.1)
[2018-10-29] VITALS: BP 130/59
[2018-10-29] MEDS: AMPICILLIN/SULBACTAM 1.5 GM in NACL 0.9% 50 ML IV SCH ×4 (00:37→16:03)
[2018-10-29] MEDS: BLOOD GLUCOSE MONITORING 1 DEV DEV FS SCH ×3 (06:23→16:00)
[2018-10-29 07:35] LABS: BASOPHILS % (AUTO) 0.6 % (0.0-2.0); EOSINOPHILS # (AUTO) 0.2 K/uL (0-0.4); EOSINOPHILS % (AUTO) 3.2 % (0.0-4.0); HEMATOCRIT 30.7 % (36-48); HEMOGLOBIN 10.4 g/dL (12.0-16.0); LYMPHOCYTES # (AUTO) 1.5 K/uL (2.5-16.5); LYMPHOCYTES % (AUTO) 28.4 % (20.5-51.1); MEAN CORPUSCULAR HEMOGLOBIN 29 pg (27-31); MEAN CORPUSCULAR HGB CONC 34 g/dL (33-37); MONOCYTES # (AUTO) 0.6 K/uL (0.8-1.0); MONOCYTES % (AUTO) 10.7 % (1.7-9.3); NEUTROPHILS # (AUTO) 3.1 K/uL (1.8-7.7); NEUTROPHILS % (AUTO) 57.1 % (42.2-75.2); PLATELET COUNT (AUTO) 257 K/uL (140-450); RED BLOOD CELL COUNT(AUTO) 3.57 MIL/uL (4.20-5.40); RED CELL DISTRIBUTION WIDTH 13.9 % (11.6-13.7); WHITE BLOOD COUNT (AUTO) 5.4 K/uL (4.8-10.8)
[2018-10-29 07:54] LABS: ANION GAP 9.1 (8-16); CARBON DIOXIDE 30.6 mmol/L (21-32); POTASSIUM 4.7 mmol/L (3.5-5.1)
[2018-10-29 07:55] LABS: ALBUMIN 3.3 g/dL (3.4-5.0); CREATININE 0.6 mg/dL (0.6-1.3); TOTAL BILIRUBIN 0.4 mg/dL (0.0-1.0)
[2018-10-29] MEDS: carBAMazepine 200 MG TAB PO SCH (09:06)
[2018-10-29] MEDS: NIFEdipine 30 MG TABER PO SCH (09:06)
[2018-10-29] MEDS: QUEtiapine FUMARATE 100 MG TAB PO SCH (09:06)
[2018-10-29] MEDS: LISINOPRIL 10 MG TAB PO SCH (09:06)
[2018-10-29] MEDS: levETIRAcetam 500 MG TAB PO SCH (09:06)
[2018-10-29] MEDS: SODIUM CHLORIDE 1 GM TAB PO SCH ×3 (09:07→16:00)
[2018-10-29] MEDS: DOCUSATE SODIUM 100 MG GELCAP PO SCH (09:07)
[2018-10-29] MEDS: ENOXAPARIN 40 MG/0.4 ML SYR SUBQ SCH (09:09)
[2018-10-29 09:35] VITALS: BP 146/60
[2018-10-29] MEDS: Z-GUARD PASTE TP SCH (12:24)
[2018-10-29] MEDS: INSULIN LISPRO SLIDING SCALE 100 UNITS/ML VIAL SUBQ PRN (12:33)
[2018-10-29 14:13] LABS: ANION GAP 11.5 (8-16); CARBON DIOXIDE 27.5 mmol/L (21-32); CREATININE 0.6 mg/dL (0.6-1.3)
[2018-10-29] MEDS ORDERED: SODI100076 PO (15:15)
[2018-10-29] MEDS ORDERED: CEPH250C16 PO (15:16)
[2018-10-29 16:27] VITALS: BP 124/58
== END 2018-10-29 18:43 | disposition home or self-care (01) ==
LOC: MED 12:57 → MTU 16:15
PROVIDERS: ADMIT Internal Medicine Pulmonary Disease; ATTEND Internal Medicine Pulmonary Disease
DX: E87.1 Hypo-osmolality and hyponatremia (principal); N39.0 Urinary tract infection, site not specified; E11.9 Type 2 diabetes mellitus without complications; I10 Essential (primary) hypertension; E78.5 Hyperlipidemia, unspecified; G80.9 Cerebral palsy, unspecified; G40.909 Epilepsy, unspecified, not intractable, without status epilepticus
CPT/HCPCS: 36415; 80048; 80053; 81001; 82948; 83605; 83690; 83735; 83935; 84295; 84300; 85025; 87040; 87081; 87086; 87186; 96365; 96366; 96367; 96372; 96375; 97116; 97161; 99285; C1758; G0378; J0295; J0696; J1650; J1815; J1885; J3475; J7030; 96360; 96361; 99283